=== PATIENT | female | born 1980 | race Caucasian/White ===

== ENCOUNTER 2016-11-16 16:48 | Inpatient (IN) | payer BC ==
[~2016-11-16] VITALS: Ht 172.7 cm; Wt 75.0 kg
[~2016-11-16 16:48] MED LIST: ADDERALL10 MG PO; ALPRAZOLAM0.25 M1 OR; ALPRAZOLAM0.25 MG PO; AMITRIPTYLIN25 MG OR; AMOXICILLIN500 MG PO; ASPIRIN EC325 MG PO; BACTRIM DS1 TAB OR; BACTRIM DS1 TAB PO; BUSPIRONE15 MG PO; CARAFATE PO; CELEBREX400 MG OR; CIPROFLOXACN500 MG PO; COMPAZINE10 MG OR; CYANOCOBALAM1000 MCG IJ; DECADRON4 MG PO; DEXILANT60 MG PO; DURAGESIC25 MCG/PAT TD; EFFEXOR75 MG OR; FENTANYL25 MCG/HR TD; FIORINA1 PO; FLEXERIL PO; FLEXERIL10 MG PO; IMODIUM OR; KLONOPIN0.5 MG PO; KLONOPIN1 MG OR; LAMICTAL100 M1 OR; LAMICTAL150 M1 OR; LAMICTAL200 MG OR; LAMICTAL25 M2 PO; LOMOTIL OR; LOMOTIL2.5 MG OR; LOMOTIL2.5 MG PO; LORTAB 10 OR; LORTAB 1010 MG PO; LORTAB 7.5 OR; LORTAB 7.57.5 MG PO; LYRICA75 MG OR; MACRODANTIN100 MG OR; MEDDOSEPAK OR; NAPROSYN500 MG PO; NEURONTIN300 MG PO; NO; NO HOME MEDS; ONDANSETRON4 MG PO; PAXIL30 MG PO; PERCOCET 5/325M1 TAB OR; PERCOCET1 TA4 PO; PHENERGAN12.5 MG/TA OR; PHENERGAN25 MG/ML PO; PHENERGAN25 MG/TAB PO; PREVACID30 M1 PO; PREVACID30 M2 PO; PRILOSEC40 MG PO; PROMETHAZINE25 MG OR; PROMETHAZINE25 MG PO; PROTONIX40 M2 PO; REGLAN10 MG OR; RESTORIL15 MG PO; TEMAZEPAM30 MG OR; TEMAZEPAM30 MG PO; TRAMADOL HCL50 MG OR; TRAMADOL HCL50 MG PO; TRAZODONE50 MG OR; TYLENOL500 MG OR; ULTRAM50 MG OR; ULTRAM50 MG PO; VOLTAREN1%GEL TOP; XANAX1 MG OR; ZOFRAN ODT8 MG PO; ZOFRAN ODT8 MG SL; ZOFRAN8 MG OR
[2016-11-16 17:57] LABS: HEMATOCRIT 41.9 % (37.0-47.0); HEMOGLOBIN 14.4 g/dl (12.0-16.0); IMMATURE GRANULOCYTES 0.3 % (0.0-1.0); MEAN CELL VOLUME 87.5 fL CALC (80.0-100.0); MEAN CORPUSCULAR HGB 30.1 pG CALC (26.0-32.0); MEAN CORPUSCULAR HGB CONC 34.4 g/L CALC (32.0-36.0); NEUT# 4.58 thou/uL (2.00-7.15); RED BLOOD COUNT 4.79 mill/uL (4.20-5.60); RED CELL DISTRI WIDTH 12.3 % (11.5-15.5)
[2016-11-16 18:18] LABS: ALBUMIN 5.3 g/dL (3.2-5.0); ALKALINE PHOSPHATASE 165 u/l (38-126); AMYLASE 171 u/l (30-110); ANION GAP 19 (6-22 (CALC)); BILIRUBIN, TOTAL 0.9 mg/dL (0.0-1.4); BUN 21 mg/dL (7-17); BUN/CREATININE RATIO 17 (12-20 (CALC)); CALCIUM 10.2 mg/dL (8.4-10.2); CARBON DIOXIDE 21 mmol/l (22-30); CHLORIDE 101 mmol/l (95-108); CREATININE 1.2 mg/dL (0.5-1.0); GFR 51 ML/MIN (>=60 (CALC)); GFR FOR AFR.AMER. > 60 ML/MIN (>=60 (CALC)); GLUCOSE 92 mg/dL (65-105); LIPASE 828 u/l (23-300); SGOT/AST 32 u/l (14-36); SGPT/ALT 50 u/l (9-52); SODIUM 138 mmol/l (137-146)
[2016-11-16 18:30] LABS: URINE BILIRUBIN - DIPSTICK NEGATIVE (NEGATIVE); URINE BLOOD DIPSTICK TRACE-INTACT (NEGATIVE); URINE CLARITY CLEAR; URINE COLOR YELLOW; URINE GLUCOSE - DIPSTICK NEGATIVE (NEGATIVE); URINE KETONE NEGATIVE (NEGATIVE); URINE NITRITE - DIPSTICK NEGATIVE (Negative); URINE PROTEIN - DIPSTICK NEGATIVE (NEG-TRACE); URINE UROBILINOGEN - DIPSTICK 0.2 E.U./dL (0.2)
[2016-11-16 18:32] LABS: URINE LEUK ESTERASE SMALL (NEGATIVE)
[2016-11-16 18:40] LABS: URINE SQUAMOUS EPITHELIAL CELL FEW EPI/hpf (0-FEW)
[2016-11-16] MEDS ORDERED: BACTRIM DS1 TAB PO (21:01)
[2016-11-16] MEDS ORDERED: PERCOCET 5/325M1 TAB PO (21:01)
[2016-11-16 22:49] VITALS: BP 133/86
[2016-11-17 05:34] VITALS: BP 129/82
[2016-11-17 05:52] LABS: ALKALINE PHOSPHATASE 124 u/l (38-126); AMYLASE 123 u/l (30-110); ANION GAP 15 (6-22 (CALC)); BILIRUBIN, TOTAL 1.1 mg/dL (0.0-1.4); BUN 18 mg/dL (7-17); BUN/CREATININE RATIO 16 (12-20 (CALC)); CALCIUM 8.7 mg/dL (8.4-10.2); CARBON DIOXIDE 19 mmol/l (22-30); CHLORIDE 105 mmol/l (95-108); CREATININE 1.1 mg/dL (0.5-1.0); GFR 57 ML/MIN (>=60 (CALC)); GFR FOR AFR.AMER. > 60 ML/MIN (>=60 (CALC)); GLUCOSE 78 mg/dL (65-105); LIPASE 425 u/l (23-300); POTASSIUM 3.8 mmol/l (3.5-5.1); SGOT/AST 28 u/l (14-36); SGPT/ALT 45 u/l (9-52); SODIUM 135 mmol/l (137-146); TOTAL PROTEIN 6.8 g/dL (6.3-8.2)
[2016-11-17 05:56] LABS: HEMATOCRIT 35.7 % (37.0-47.0); HEMOGLOBIN 12.4 g/dl (12.0-16.0); IMMATURE GRANULOCYTES 0.3 % (0.0-1.0); MEAN CELL VOLUME 87.9 fL CALC (80.0-100.0); MEAN CORPUSCULAR HGB 30.5 pG CALC (26.0-32.0); MEAN CORPUSCULAR HGB CONC 34.7 g/L CALC (32.0-36.0); NEUT# 4.05 thou/uL (2.00-7.15); RED BLOOD COUNT 4.06 mill/uL (4.20-5.60); RED CELL DISTRI WIDTH 12.4 % (11.5-15.5)
[2016-11-17 08:03] VITALS: BP 115/63
[2016-11-17 15:31] VITALS: BP 102/59
[2016-11-17 19:40] VITALS: BP 95/61
[2016-11-18 04:25] VITALS: BP 127/73; BP 143/86
[2016-11-18 05:30] LABS: HEMATOCRIT 32.7 % (37.0-47.0); IMMATURE GRANULOCYTES 0.4 % (0.0-1.0); MEAN CELL VOLUME 89.1 fL CALC (80.0-100.0); MEAN CORPUSCULAR HGB CONC 33.6 g/L CALC (32.0-36.0); NEUT# 1.24 thou/uL (2.00-7.15); RED BLOOD COUNT 3.67 mill/uL (4.20-5.60); RED CELL DISTRI WIDTH 12.5 % (11.5-15.5)
[2016-11-18 05:33] LABS: ALBUMIN 3.4 g/dL (3.2-5.0); ALKALINE PHOSPHATASE 107 u/l (38-126); AMYLASE 110 u/l (30-110); ANION GAP 9 (6-22 (CALC)); BILIRUBIN, TOTAL 0.8 mg/dL (0.0-1.4); BUN 9 mg/dL (7-17); BUN/CREATININE RATIO 8 (12-20 (CALC)); CALCIUM 8.6 mg/dL (8.4-10.2); CARBON DIOXIDE 24 mmol/l (22-30); CHLORIDE 110 mmol/l (95-108); CREATININE 1.1 mg/dL (0.5-1.0); GFR 57 ML/MIN (>=60 (CALC)); GFR FOR AFR.AMER. > 60 ML/MIN (>=60 (CALC)); GLUCOSE 89 mg/dL (65-105); LIPASE 472 u/l (23-300); POTASSIUM 3.7 mmol/l (3.5-5.1); SGOT/AST 31 u/l (14-36); SGPT/ALT 43 u/l (9-52); SODIUM 139 mmol/l (137-146); TOTAL PROTEIN 5.9 g/dL (6.3-8.2)
[2016-11-18 15:08] VITALS: BP 110/73
[2016-11-18 19:20] VITALS: BP 115/73
[2016-11-19 04:21] LABS: HEMATOCRIT 36.1 % (37.0-47.0); HEMOGLOBIN 12.2 g/dl (12.0-16.0); IMMATURE GRANULOCYTES 0.2 % (0.0-1.0); MEAN CELL VOLUME 88.9 fL CALC (80.0-100.0); MEAN CORPUSCULAR HGB CONC 33.8 g/L CALC (32.0-36.0); NEUT# 2.77 thou/uL (2.00-7.15); RED BLOOD COUNT 4.06 mill/uL (4.20-5.60); RED CELL DISTRI WIDTH 12.4 % (11.5-15.5)
[2016-11-19 04:33] LABS: ALBUMIN 3.9 g/dL (3.2-5.0); ALKALINE PHOSPHATASE 118 u/l (38-126); AMYLASE 194 u/l (30-110); ANION GAP 12 (6-22 (CALC)); BILIRUBIN, TOTAL 0.5 mg/dL (0.0-1.4); BUN 6 mg/dL (7-17); BUN/CREATININE RATIO 5 (12-20 (CALC)); CALCIUM 8.8 mg/dL (8.4-10.2); CARBON DIOXIDE 25 mmol/l (22-30); CHLORIDE 107 mmol/l (95-108); CREATININE 1.1 mg/dL (0.5-1.0); GFR 57 ML/MIN (>=60 (CALC)); GFR FOR AFR.AMER. > 60 ML/MIN (>=60 (CALC)); GLUCOSE 89 mg/dL (65-105); LIPASE 1204 u/l (23-300); POTASSIUM 3.8 mmol/l (3.5-5.1); SGOT/AST 28 u/l (14-36); SGPT/ALT 45 u/l (9-52); SODIUM 140 mmol/l (137-146); TOTAL PROTEIN 6.7 g/dL (6.3-8.2)
[2016-11-19 04:39] VITALS: BP 109/66
[2016-11-19 07:50] VITALS: BP 96/63
[2016-11-19 15:17] VITALS: BP 98/63
[2016-11-19 19:42] VITALS: BP 101/69
[2016-11-20 04:20] VITALS: BP 104/69
[2016-11-20 04:56] LABS: HEMATOCRIT 32.1 % (37.0-47.0); HEMOGLOBIN 11.1 g/dl (12.0-16.0); IMMATURE GRANULOCYTES 0.2 % (0.0-1.0); MEAN CELL VOLUME 88.9 fL CALC (80.0-100.0); MEAN CORPUSCULAR HGB 30.7 pG CALC (26.0-32.0); MEAN CORPUSCULAR HGB CONC 34.6 g/L CALC (32.0-36.0); NEUT# 2.56 thou/uL (2.00-7.15); RED BLOOD COUNT 3.61 mill/uL (4.20-5.60); RED CELL DISTRI WIDTH 12.1 % (11.5-15.5)
[2016-11-20 05:10] LABS: ALBUMIN 3.3 g/dL (3.2-5.0); ALKALINE PHOSPHATASE 100 u/l (38-126); AMYLASE 156 u/l (30-110); ANION GAP 11 (6-22 (CALC)); BILIRUBIN, TOTAL 0.5 mg/dL (0.0-1.4); BUN 8 mg/dL (7-17); BUN/CREATININE RATIO 7 (12-20 (CALC)); CALCIUM 8.6 mg/dL (8.4-10.2); CARBON DIOXIDE 22 mmol/l (22-30); CHLORIDE 110 mmol/l (95-108); CREATININE 1.1 mg/dL (0.5-1.0); GFR 57 ML/MIN (>=60 (CALC)); GFR FOR AFR.AMER. > 60 ML/MIN (>=60 (CALC)); GLUCOSE 140 mg/dL (65-105); LIPASE 944 u/l (23-300); POTASSIUM 3.6 mmol/l (3.5-5.1); SGOT/AST 22 u/l (14-36); SGPT/ALT 37 u/l (9-52); SODIUM 139 mmol/l (137-146); TOTAL PROTEIN 5.8 g/dL (6.3-8.2)
[2016-11-20 08:22] VITALS: BP 113/73
[2016-11-20 15:54] VITALS: BP 94/53
[2016-11-20 19:20] VITALS: BP 96/64
[2016-11-21 04:56] VITALS: BP 117/77
[2016-11-21 05:18] LABS: HEMATOCRIT 34.6 % (37.0-47.0); HEMOGLOBIN 11.9 g/dl (12.0-16.0); IMMATURE GRANULOCYTES 0.2 % (0.0-1.0); MEAN CELL VOLUME 88.9 fL CALC (80.0-100.0); MEAN CORPUSCULAR HGB 30.6 pG CALC (26.0-32.0); MEAN CORPUSCULAR HGB CONC 34.4 g/L CALC (32.0-36.0); NEUT# 1.95 thou/uL (2.00-7.15); RED BLOOD COUNT 3.89 mill/uL (4.20-5.60); RED CELL DISTRI WIDTH 12.2 % (11.5-15.5)
[2016-11-21 05:32] LABS: ALBUMIN 3.7 g/dL (3.2-5.0); ALKALINE PHOSPHATASE 110 u/l (38-126); AMYLASE 164 u/l (30-110); ANION GAP 13 (6-22 (CALC)); BILIRUBIN, TOTAL 0.7 mg/dL (0.0-1.4); BUN 9 mg/dL (7-17); BUN/CREATININE RATIO 8 (12-20 (CALC)); CARBON DIOXIDE 26 mmol/l (22-30); CHLORIDE 107 mmol/l (95-108); CREATININE 1.2 mg/dL (0.5-1.0); GFR 51 ML/MIN (>=60 (CALC)); GFR FOR AFR.AMER. > 60 ML/MIN (>=60 (CALC)); GLUCOSE 81 mg/dL (65-105); LIPASE 751 u/l (23-300); POTASSIUM 3.6 mmol/l (3.5-5.1); SGOT/AST 19 u/l (14-36); SGPT/ALT 34 u/l (9-52); SODIUM 142 mmol/l (137-146); TOTAL PROTEIN 6.4 g/dL (6.3-8.2)
== END 2016-11-21 12:20 | DRG 445 ==
LOC: ED 16:48 → ED-I 21:41 → ED 22:03 → MS2 22:04
PROVIDERS: Emergency Medicine; ADMIT Internal Medicine Geriatric Medicine; ATTEND Internal Medicine Geriatric Medicine
DX: K80.50 Calculus of bile duct without cholangitis or cholecystitis without obstruction (principal); K86.1 Other chronic pancreatitis; F32.9 Major depressive disorder, single episode, unspecified; R19.09 Other intra-abdominal and pelvic swelling, mass and lump; E86.0 Dehydration; Z93.2 Ileostomy status; Z90.49 Acquired absence of other specified parts of digestive tract; Z85.038 Personal history of other malignant neoplasm of large intestine
CPT/HCPCS: J1650; S0164

== ENCOUNTER 2016-12-12 15:20 | Inpatient (IN) | payer BC ==
[~2016-12-12] VITALS: Ht 172.7 cm; Wt 78.4 kg
[~2016-12-12 15:20] MED LIST changes: +PERCOCET 5/325M1 TAB PO
[2016-12-12 16:39] LABS: HEMOGLOBIN 12.1 g/dl (12.0-16.0); IMMATURE GRANULOCYTES 0.6 % (0.0-1.0); MEAN CELL VOLUME 88.5 fL CALC (80.0-100.0); MEAN CORPUSCULAR HGB 29.7 pG CALC (26.0-32.0); MEAN CORPUSCULAR HGB CONC 33.6 g/L CALC (32.0-36.0); NEUT# 4.93 thou/uL (2.00-7.15); RED BLOOD COUNT 4.07 mill/uL (4.20-5.60); RED CELL DISTRI WIDTH 11.7 % (11.5-15.5)
[2016-12-12 16:50] LABS: ALBUMIN 4.7 g/dL (3.2-5.0); ALKALINE PHOSPHATASE 146 u/l (38-126); AMYLASE 179 u/l (30-110); ANION GAP 18 (6-22 (CALC)); BILIRUBIN, TOTAL 0.5 mg/dL (0.0-1.4); BUN 17 mg/dL (7-17); BUN/CREATININE RATIO 16 (12-20 (CALC)); CALCIUM 9.6 mg/dL (8.4-10.2); CARBON DIOXIDE 25 mmol/l (22-30); CHLORIDE 97 mmol/l (95-108); CREATININE 1.1 mg/dL (0.5-1.0); GFR 57 ML/MIN (>=60 (CALC)); GFR FOR AFR.AMER. > 60 ML/MIN (>=60 (CALC)); GLUCOSE 99 mg/dL (65-105); LIPASE 797 u/l (23-300); POTASSIUM 3.9 mmol/l (3.5-5.1); SGOT/AST 23 u/l (14-36); SGPT/ALT 25 u/l (9-52); SODIUM 137 mmol/l (137-146); TOTAL PROTEIN 8.3 g/dL (6.3-8.2)
[2016-12-12] MEDS ORDERED: BENTYL20 MG PO (18:53)
[2016-12-12] MEDS ORDERED: TRAMADOL HCL50 MG PO (18:55)
[2016-12-12 19:00] LABS: URINE BILIRUBIN - DIPSTICK NEGATIVE (NEGATIVE); URINE BLOOD DIPSTICK NEGATIVE (NEGATIVE); URINE COLOR YELLOW; URINE GLUCOSE - DIPSTICK NEGATIVE (NEGATIVE); URINE KETONE NEGATIVE (NEGATIVE); URINE NITRITE - DIPSTICK NEGATIVE (Negative); URINE PROTEIN - DIPSTICK NEGATIVE (NEG-TRACE); URINE SPECIFIC GRAVITY 1.015; URINE UROBILINOGEN - DIPSTICK 0.2 E.U./dL (0.2)
[2016-12-12 19:01] LABS: URINE CLARITY HAZY; URINE LEUK ESTERASE MODERATE (NEGATIVE)
[2016-12-12 19:07] LABS: URINE SQUAMOUS EPITHELIAL CELL FEW EPI/hpf (0-FEW)
[2016-12-12 20:50] VITALS: BP 123/81
[2016-12-12 23:25] VITALS: BP 121/67
[2016-12-13 03:15] VITALS: BP 97/57
[2016-12-13 06:32] LABS: HEMATOCRIT 32.1 % (37.0-47.0); HEMOGLOBIN 10.8 g/dl (12.0-16.0); IMMATURE GRANULOCYTES 0.2 % (0.0-1.0); MEAN CELL VOLUME 90.2 fL CALC (80.0-100.0); MEAN CORPUSCULAR HGB 30.3 pG CALC (26.0-32.0); MEAN CORPUSCULAR HGB CONC 33.6 g/L CALC (32.0-36.0); NEUT# 2.03 thou/uL (2.00-7.15); RED BLOOD COUNT 3.56 mill/uL (4.20-5.60); RED CELL DISTRI WIDTH 11.7 % (11.5-15.5)
[2016-12-13 06:39] LABS: ALBUMIN 3.7 g/dL (3.2-5.0); ALKALINE PHOSPHATASE 115 u/l (38-126); BILIRUBIN, TOTAL 0.4 mg/dL (0.0-1.4); BUN 11 mg/dL (7-17); BUN/CREATININE RATIO 12 (12-20 (CALC)); CARBON DIOXIDE 21 mmol/l (22-30); CREATININE 0.9 mg/dL (0.5-1.0); GFR > 60 ML/MIN (>=60 (CALC)); GFR FOR AFR.AMER. > 60 ML/MIN (>=60 (CALC)); GLUCOSE 87 mg/dL (65-105); POTASSIUM 3.9 mmol/l (3.5-5.1); SGOT/AST 18 u/l (14-36); SGPT/ALT 22 u/l (9-52); SODIUM 141 mmol/l (137-146); TOTAL PROTEIN 6.5 g/dL (6.3-8.2)
[2016-12-13 06:42] LABS: AMYLASE 127 u/l (30-110); LIPASE 622 u/l (23-300)
[2016-12-13 06:50] LABS: ANION GAP 17 (6-22 (CALC)); CHLORIDE 107 mmol/l (95-108)
[2016-12-13 08:00] VITALS: BP 90/54
[2016-12-13 10:16] LABS: CHOLESTEROL HDL RATIO 4.2 (<4.4 (CALC))
[2016-12-13 14:41] VITALS: BP 118/77
[2016-12-13 19:32] VITALS: BP 113/77
[2016-12-14 04:33] VITALS: BP 103/83
[2016-12-14 06:13] LABS: HEMATOCRIT 30.6 % (37.0-47.0); HEMOGLOBIN 10.2 g/dl (12.0-16.0); IMMATURE GRANULOCYTES 0.3 % (0.0-1.0); MEAN CELL VOLUME 89.7 fL CALC (80.0-100.0); MEAN CORPUSCULAR HGB 29.9 pG CALC (26.0-32.0); MEAN CORPUSCULAR HGB CONC 33.3 g/L CALC (32.0-36.0); NEUT# 1.77 thou/uL (2.00-7.15); RED BLOOD COUNT 3.41 mill/uL (4.20-5.60); RED CELL DISTRI WIDTH 11.8 % (11.5-15.5)
[2016-12-14 06:38] LABS: ALBUMIN 3.4 g/dL (3.2-5.0); ALKALINE PHOSPHATASE 111 u/l (38-126); AMYLASE 122 u/l (30-110); ANION GAP 12 (6-22 (CALC)); BILIRUBIN, TOTAL 0.3 mg/dL (0.0-1.4); BUN 11 mg/dL (7-17); BUN/CREATININE RATIO 11 (12-20 (CALC)); CALCIUM 8.6 mg/dL (8.4-10.2); CARBON DIOXIDE 24 mmol/l (22-30); CHLORIDE 109 mmol/l (95-108); GFR > 60 ML/MIN (>=60 (CALC)); GFR FOR AFR.AMER. > 60 ML/MIN (>=60 (CALC)); GLUCOSE 90 mg/dL (65-105); POTASSIUM 3.9 mmol/l (3.5-5.1); SGOT/AST 17 u/l (14-36); SGPT/ALT 23 u/l (9-52); SODIUM 141 mmol/l (137-146)
[2016-12-14 07:40] VITALS: BP 114/78
[2016-12-14 16:08] VITALS: BP 116/67
[2016-12-14 20:05] VITALS: BP 118/78
[2016-12-14 23:25] VITALS: BP 115/73
[2016-12-15 04:40] VITALS: BP 92/61
[2016-12-15 06:18] LABS: HEMATOCRIT 29.9 % (37.0-47.0); HEMOGLOBIN 10.1 g/dl (12.0-16.0); IMMATURE GRANULOCYTES 0.3 % (0.0-1.0); MEAN CELL VOLUME 90.3 fL CALC (80.0-100.0); MEAN CORPUSCULAR HGB 30.5 pG CALC (26.0-32.0); MEAN CORPUSCULAR HGB CONC 33.8 g/L CALC (32.0-36.0); NEUT# 1.74 thou/uL (2.00-7.15); RED BLOOD COUNT 3.31 mill/uL (4.20-5.60); RED CELL DISTRI WIDTH 11.7 % (11.5-15.5)
[2016-12-15 06:29] LABS: ALBUMIN 3.4 g/dL (3.2-5.0); ALKALINE PHOSPHATASE 100 u/l (38-126); AMYLASE 134 u/l (30-110); ANION GAP 13 (6-22 (CALC)); BILIRUBIN, TOTAL 0.2 mg/dL (0.0-1.4); BUN 15 mg/dL (7-17); BUN/CREATININE RATIO 15 (12-20 (CALC)); CALCIUM 8.8 mg/dL (8.4-10.2); CARBON DIOXIDE 24 mmol/l (22-30); CHLORIDE 108 mmol/l (95-108); GFR > 60 ML/MIN (>=60 (CALC)); GFR FOR AFR.AMER. > 60 ML/MIN (>=60 (CALC)); GLUCOSE 86 mg/dL (65-105); POTASSIUM 4.2 mmol/l (3.5-5.1); SGOT/AST 16 u/l (14-36); SGPT/ALT 24 u/l (9-52); SODIUM 141 mmol/l (137-146); TOTAL PROTEIN 5.9 g/dL (6.3-8.2)
[2016-12-15 07:30] VITALS: BP 97/63
[2016-12-15 15:15] VITALS: BP 102/58
[2016-12-15 19:35] VITALS: BP 118/74
[2016-12-16 04:49] VITALS: BP 114/74
[2016-12-16 05:34] LABS: HEMATOCRIT 31.5 % (37.0-47.0); HEMOGLOBIN 10.6 g/dl (12.0-16.0); IMMATURE GRANULOCYTES 0.2 % (0.0-1.0); MEAN CELL VOLUME 88.5 fL CALC (80.0-100.0); MEAN CORPUSCULAR HGB 29.8 pG CALC (26.0-32.0); MEAN CORPUSCULAR HGB CONC 33.7 g/L CALC (32.0-36.0); NEUT# 2.32 thou/uL (2.00-7.15); RED BLOOD COUNT 3.56 mill/uL (4.20-5.60); RED CELL DISTRI WIDTH 11.6 % (11.5-15.5)
[2016-12-16 05:49] LABS: ALBUMIN 3.7 g/dL (3.2-5.0); ALKALINE PHOSPHATASE 102 u/l (38-126); AMYLASE 145 u/l (30-110); ANION GAP 13 (6-22 (CALC)); BILIRUBIN, TOTAL 0.5 mg/dL (0.0-1.4); BUN 23 mg/dL (7-17); BUN/CREATININE RATIO 23 (12-20 (CALC)); CALCIUM 9.4 mg/dL (8.4-10.2); CARBON DIOXIDE 25 mmol/l (22-30); CHLORIDE 105 mmol/l (95-108); GFR > 60 ML/MIN (>=60 (CALC)); GFR FOR AFR.AMER. > 60 ML/MIN (>=60 (CALC)); GLUCOSE 85 mg/dL (65-105); LIPASE 600 u/l (23-300); POTASSIUM 4.1 mmol/l (3.5-5.1); SGOT/AST 20 u/l (14-36); SGPT/ALT 25 u/l (9-52); SODIUM 139 mmol/l (137-146); TOTAL PROTEIN 6.5 g/dL (6.3-8.2)
[2016-12-16 07:45] VITALS: BP 105/73
== END 2016-12-16 11:30 | disposition home or self-care (01) | DRG 440 ==
LOC: ENPENDDIS → ED 15:20 → ED-I 18:30 → ED 18:54 → MS2 18:55
PROVIDERS: Emergency Medicine; ADMIT Internal Medicine Geriatric Medicine; ATTEND Internal Medicine Geriatric Medicine
DX: K85.90 Acute pancreatitis without necrosis or infection, unspecified (principal); F32.9 Major depressive disorder, single episode, unspecified; R19.04 Left lower quadrant abdominal swelling, mass and lump; Z90.49 Acquired absence of other specified parts of digestive tract; Z93.2 Ileostomy status; Z87.19 Personal history of other diseases of the digestive system
CPT/HCPCS: S0164

== ENCOUNTER 2017-01-27 06:50 | Emergency (ER) | payer BC ==
[~2017-01-27] VITALS: Ht 172.7 cm; Wt 75.0 kg
[~2017-01-27 06:50] MED LIST changes: +BENTYL20 MG PO
[2017-01-27 08:44] LABS: HEMATOCRIT 30.9 % (37.0-47.0); HEMOGLOBIN 10.7 g/dl (12.0-16.0); IMMATURE GRANULOCYTES 0.7 % (0.0-1.0); MEAN CELL VOLUME 82.6 fL CALC (80.0-100.0); MEAN CORPUSCULAR HGB 28.6 pG CALC (26.0-32.0); MEAN CORPUSCULAR HGB CONC 34.6 g/L CALC (32.0-36.0); NEUT# 4.94 thou/uL (2.00-7.15); RED BLOOD COUNT 3.74 mill/uL (4.20-5.60); RED CELL DISTRI WIDTH 12.7 % (11.5-15.5)
[2017-01-27 09:12] LABS: PROTHROMBIN TIME 10.9 SECONDS (9.0-12.5)
[2017-01-27 09:16] LABS: ALBUMIN 4.6 g/dL (3.2-5.0); ALKALINE PHOSPHATASE 153 u/l (38-126); ANION GAP 17 (6-22 (CALC)); BILIRUBIN, TOTAL 0.7 mg/dL (0.0-1.4); BUN 12 mg/dL (7-17); BUN/CREATININE RATIO 13 (12-20 (CALC)); CALCIUM 9.4 mg/dL (8.4-10.2); CARBON DIOXIDE 25 mmol/l (22-30); CHLORIDE 89 mmol/l (95-108); CREATININE 0.9 mg/dL (0.5-1.0); GFR > 60 ML/MIN (>=60 (CALC)); GFR FOR AFR.AMER. > 60 ML/MIN (>=60 (CALC)); GLUCOSE 109 mg/dL (65-105); LIPASE 358 u/l (23-300); POTASSIUM 3.6 mmol/l (3.5-5.1); SGOT/AST 53 u/l (14-36); SGPT/ALT 49 u/l (9-52); SODIUM 127 mmol/l (137-146); TOTAL PROTEIN 8.4 g/dL (6.3-8.2)
[2017-01-27 16:30] VITALS: BP 112/71
== END 2017-01-27 16:30 | DRG 948 ==
LOC: ED 06:50
PROVIDERS: Emergency Medicine
DX: G89.18 Other acute postprocedural pain (principal); E87.1 Hypo-osmolality and hyponatremia; K68.11 Postprocedural retroperitoneal abscess; K86.1 Other chronic pancreatitis; R11.2 Nausea with vomiting, unspecified
CPT/HCPCS: Q9967

== ENCOUNTER 2017-02-02 08:36 | Emergency (ER) | payer BC ==
[~2017-02-02] VITALS: Ht 172.7 cm; Wt 72.7 kg
[2017-02-02] MEDS ORDERED: SERTRALINE HCL50 MG PO (09:32)
[2017-02-02] MEDS ORDERED: OXYCODONE/ACETA1 TA8 PO (09:35)
[2017-02-02 09:44] LABS: HEMATOCRIT 35.5 % (37.0-47.0); HEMOGLOBIN 12.6 g/dl (12.0-16.0); IMMATURE GRANULOCYTES 0.8 % (0.0-1.0); MEAN CELL VOLUME 81.1 fL CALC (80.0-100.0); MEAN CORPUSCULAR HGB 28.8 pG CALC (26.0-32.0); MEAN CORPUSCULAR HGB CONC 35.5 g/L CALC (32.0-36.0); NEUT# 15.75 thou/uL (2.00-7.15); RED BLOOD COUNT 4.38 mill/uL (4.20-5.60); RED CELL DISTRI WIDTH 13.5 % (11.5-15.5)
[2017-02-02 10:18] LABS: ALBUMIN 5.2 g/dL (3.2-5.0); BILIRUBIN, TOTAL 0.8 mg/dL (0.0-1.4); CREATININE 1.7 mg/dL (0.5-1.0); POTASSIUM 3.9 mmol/l (3.5-5.1); TOTAL PROTEIN 9.3 g/dL (6.3-8.2)
[2017-02-02 11:25] LABS: URINE BILIRUBIN - DIPSTICK NEGATIVE (NEGATIVE); URINE BLOOD DIPSTICK NEGATIVE (NEGATIVE); URINE CLARITY CLEAR; URINE COLOR YELLOW; URINE GLUCOSE - DIPSTICK NEGATIVE (NEGATIVE); URINE KETONE NEGATIVE (NEGATIVE); URINE LEUK ESTERASE NEGATIVE (NEGATIVE); URINE NITRITE - DIPSTICK NEGATIVE (Negative); URINE PH 5.5 (4.5-8.0); URINE PROTEIN - DIPSTICK TRACE mg/dL (NEG-TRACE); URINE SPECIFIC GRAVITY 1.025; URINE UROBILINOGEN - DIPSTICK 0.2 E.U./dL (0.2)
[2017-02-02] MEDS ORDERED: PHENERGAN25 MG/TAB PO (12:10)
[2017-02-02 14:42] VITALS: BP 114/82
== END 2017-02-02 14:41 | DRG 395 ==
LOC: ED 08:36 → ED-I 11:29 → ED 14:41
PROVIDERS: Emergency Medicine
DX: K91.3 Postprocedural intestinal obstruction (principal); E86.0 Dehydration; Y83.2 Surgical operation with anastomosis, bypass or graft as the cause of abnormal reaction of the patient, or of later complication, without mention of misadventure at the time of the procedure; R10.33 Periumbilical pain; R11.0 Nausea

== ENCOUNTER 2017-02-17 19:37 | Inpatient (IN) | payer BC ==
[~2017-02-17] VITALS: Ht 172.7 cm; Wt 74.0 kg
[~2017-02-17 19:37] MED LIST changes: +OXYCODONE/ACETA1 TA8 PO; +SERTRALINE HCL50 MG PO
--- NOTE | 2017-02-17 19:47 | NUR ---
PT TO ROOM FOR TREATMENT IN STABLE CONDITION
[2017-02-17] MEDS ORDERED: ULTRAM50 MG PO (19:56)
--- NOTE | 2017-02-17 19:58 | NUR ---
IN ROOM TO INTRODUCE SELF TO PT. REPORTS ONGOING UPPER ABD PAIN FOR 3 DAYS WITH NAUSEA AND DIARRHEA. PT HAS ILEOSTOMY IN PLACE WITH SOFT BROWN STOOL, PT STATED HAS CHANGED BAG EVERY 1-2 HRS SINCE YESTERDAY. WAS D/C FROM [facility] 02/06 AND HAD NGT PLACED FOR SBO. PORT TO LEFT UPPER CHEST. PLACED ON MONITOR. CALL LIGHT WITHIN REACH.
--- NOTE | 2017-02-17 20:35 | NUR ---
PT'S PORT ACCESSED BY JONAS COPE. PORT FLUSHES WITH NO DIFFICULTY. + BLOOD RETURN. LABDS DRAWN. PT MEDICATED FOR PAIN AND NAUSEA. IVF INFUSING TO PORT.VERBALIZES NO NEEDS AT THIS TIME.
[2017-02-17 20:41] LABS: HEMATOCRIT 28.4 % (37.0-47.0); HEMOGLOBIN 9.8 g/dl (12.0-16.0); IMMATURE GRANULOCYTES 0.2 % (0.0-1.0); MEAN CELL VOLUME 83.5 fL CALC (80.0-100.0); MEAN CORPUSCULAR HGB 28.8 pG CALC (26.0-32.0); MEAN CORPUSCULAR HGB CONC 34.5 g/L CALC (32.0-36.0); NEUT# 3.56 thou/uL (2.00-7.15); RED BLOOD COUNT 3.4 mill/uL (4.20-5.60); RED CELL DISTRI WIDTH 13.8 % (11.5-15.5)
[2017-02-17 20:47] LABS: ALBUMIN 4.3 g/dL (3.2-5.0); ALKALINE PHOSPHATASE 137 u/l (38-126); AMYLASE 120 u/l (30-110); ANION GAP 16 (6-22 (CALC)); BILIRUBIN, TOTAL 0.5 mg/dL (0.0-1.4); BUN 25 mg/dL (7-17); BUN/CREATININE RATIO 21 (12-20 (CALC)); CALCIUM 8.6 mg/dL (8.4-10.2); CARBON DIOXIDE 24 mmol/l (22-30); CHLORIDE 96 mmol/l (95-108); CREATININE 1.2 mg/dL (0.5-1.0); GFR 51 ML/MIN (>=60 (CALC)); GFR FOR AFR.AMER. > 60 ML/MIN (>=60 (CALC)); GLUCOSE 93 mg/dL (65-105); LIPASE 527 u/l (23-300); POTASSIUM 3.7 mmol/l (3.5-5.1); SGOT/AST 38 u/l (14-36); SGPT/ALT 51 u/l (9-52); SODIUM 132 mmol/l (137-146); TOTAL PROTEIN 7.3 g/dL (6.3-8.2)
--- NOTE | 2017-02-17 21:17 | NUR ---
PT RETURNED FROM CT. RESTING ON STRETCHER. CALL LIGHT WITHIN REACH. IVF TO PORT.
--- NOTE | 2017-02-17 22:20 | NUR ---
REPORT GIVEN TO ANATOLIY PROCTOR ON MS.
[2017-02-17 22:30] VITALS: BP 110/71
--- NOTE | 2017-02-17 22:30 | NUR ---
FROM ER TO MED/SURG ROOM 279, ARRIVED VIA W/C ACCOMPANIED BY ANUEL FOWLER LPN, PT AMBULATED TO STANDING SCALE AND TO BED, STEADY GAIT NOTED, ALERT AND ORIENTED X3, HAS ILEOSTOMY BAG IN PLACE, LIQUID GREEN STOOL NOTED ON ILEOSTOMY BAG, STOMA IS PINK/RED COLOR, DENIES PAIN AND N/V AT THIS TIME, SKIN IS DRY AND COOL, ACYANOTIC, LUNGS ARE CLEAR ALLTHROUGHOUT, STRONG PEDAL PULSES ABDOMEN IS SOFT, TENDER TO TOUCH, EXPLAINED MED SCHEDULE AND PLAN OF CARE, PT VOICES UNDERSTANDING, PT HAS OWN SUPPLY FOR ILEOSTOMY CARE, ENCOURAGED TO CALL IF ASSISTANCE NEEDED, PT HAS RIGHT UPPER CHEST PORT, ACCESSED TODAY IN ER, NO FLUIDS INFUSING, FLUSHES WELL WITH GOOD BLOOD RETURN, NONSKID SOCKS AND TEDHOSE IN PLACE, SAFETY MEASURES REINFORCED, WILL CONTINUE TO MONITOR, CALL SAMUEL AT REACH.
--- NOTE | 2017-02-17 22:35 | NUR ---
Admission Note Report Given to: ANATOLIY PROCTOR Transported by: X Wheelchair Stretcher Transported with: X Nurse Transporter X Patent IV O2 [employer] PT TRANSPORTED TO MS 279 VIA WC. BELONGINGS SENT WITH PT.
--- NOTE | 2017-02-17 23:33 | NUR ---
CALLED DR. TOWNSEND, NEW ORDERS RECEIVED, WILL FAX THEM TO PHARMACY. WILL MEDICATED PER ORDERS NEEDED.
--- NOTE | 2017-02-18 01:51 | NUR ---
PT C/O FEELING NAUSEAS, MEDICATED WITH ZOFRAN PER DRCuco ORDERS, C/O ABDOMINAL PAIN, RATES IT AT 8/10 WILL MEDICATED PER ORDERS, WILL CONTINUE TO MONITOR.
[2017-02-18 04:42] VITALS: BP 92/56
--- NOTE | 2017-02-18 05:02 | NUR ---
DRAWN MORNING LABS, FLUSHED RIGHT CHEST PORT WITH HEPARIN FLUSH PER PROTOCOL, PT APPEARS CALM, NO DISTRESS NOTED, RESP ARE EVEN AND UNLABORED, STATES PAIN IN ABD RUQ IS AT 4/10, SHARP, EXPLAINED MED SCHEDULE, VOICES UNDERSTANDING, DENIES N/V, NO EMESIS NOTED, VOIDED 500CC OF CLEAR YELLOW URINE, PT SELF EMPTIED ILEOSTOMY BAG X1, STOOL IN BAG APPEARS LOOSE, NOT LIQUID MORE THICKENED CONSISTENCY, DARK GREEN/YELLOWISH, STOMA IS PINK/RED, PT REMOVED ZENIA HOSE, STATES "THEY ARE TOO TIGHT." REFUSES TO WEAR HOSPITAL SOCKS, WEARING OWN SOCKS, PT HAS OWN ILEOSTOMY SUPPLIES FROM HOME, SELF EMPTY BAG, ENCOURAGED TO CALL IF NEEDED ASSISTANCE. WILL CONTINUE TO MONITOR. CALL SAMUEL AT REACH.
[2017-02-18 05:20] LABS: AMYLASE 87 u/l (30-110); ANION GAP 15 (6-22 (CALC)); BUN 18 mg/dL (7-17); BUN/CREATININE RATIO 18 (12-20 (CALC)); CALCIUM 8.1 mg/dL (8.4-10.2); CARBON DIOXIDE 22 mmol/l (22-30); CHLORIDE 104 mmol/l (95-108); GFR > 60 ML/MIN (>=60 (CALC)); GFR FOR AFR.AMER. > 60 ML/MIN (>=60 (CALC)); GLUCOSE 83 mg/dL (65-105); LIPASE 340 u/l (23-300); POTASSIUM 3.8 mmol/l (3.5-5.1); SODIUM 137 mmol/l (137-146)
[2017-02-18 05:54] LABS: HEMATOCRIT 27.3 % (37.0-47.0); HEMOGLOBIN 9.1 g/dl (12.0-16.0); IMMATURE GRANULOCYTES 0.2 % (0.0-1.0); MEAN CELL VOLUME 85.6 fL CALC (80.0-100.0); MEAN CORPUSCULAR HGB 28.5 pG CALC (26.0-32.0); MEAN CORPUSCULAR HGB CONC 33.3 g/L CALC (32.0-36.0); NEUT# 2.01 thou/uL (2.00-7.15); RED BLOOD COUNT 3.19 mill/uL (4.20-5.60); RED CELL DISTRI WIDTH 14.2 % (11.5-15.5)
--- NOTE | 2017-02-18 06:39 | NUR ---
PT C/O SHARP PAIN IN ABD RUQ, RATES IT A 8/10, AND NAUSEA, MEDICATED WITH DILAUDID AND ZOFRAN PER DR. ORDERS, NO DISTRESS NOTED, RESP ARE EVEN AND UNLABORED, WILL CONTINUE TO REASSESS, CALL SAMUEL AT REACH.
--- NOTE | 2017-02-18 06:45 | NUR ---
REPORT RECEIVED FROM ANATOLIY PROCTOR. PT RESTING COMFORTABLY, WITH MILD PAIN LOCATED TO THE RLQ. PT DENIES NEEDS OR CONCERNS AT THIS TIME, INSTRUCTED PT TO CALL FOR ASSISTANCE. WILL CONTINUE TO MONITOR SAFETY.
[2017-02-18 08:31] VITALS: BP 92/51
--- NOTE | 2017-02-18 10:59 | NUR ---
PT MEDICATED WITH DILAUDID AND ZOFRAN FOR 8/10 PAIN TO THE RLQ. PT DENIES ANY FURTHER NEEDS OR CONCERNS. INSTRUCTED PT TO CALL FOR ASSISTANCE, PT VERBALIZES UNDERSTANDING.
--- NOTE | 2017-02-18 15:28 | NUR ---
PT MEDICATED WITH AGAIN WITH DILAUDID AND ZOFRAN. PT REQUESTING FULL LIQUIDS FOR DINNER. DIET ADVANCED INSTRUCTED BY MD. INSTRUCTED PT TO CALL FOR ASSISTANCE. STATES UNDERSTANDING
[2017-02-18 16:45] VITALS: BP 106/69
[2017-02-18 16:50] VITALS: BP 106/69
[2017-02-18 18:42] VITALS: BP 119/67
--- NOTE | 2017-02-18 19:56 | NUR ---
PATIENT RESTING IN BED AT THIS TIME-AWAKE ALERT AND ORIENTEDX3. PATIENT WITH IVF NS PATENT AND INFUSING AT 125CC/HR VIA RIGHT UPPER CHEST PORT-A-CATH. SITE APPEARS HEALTHY AT THIS TIME. PATIENT WITH ILEOSTOMY APPLIANCE INTACT AND DRAINING LIQUID BROWN FLUID. PATIENT WITH HEALTHY RECENT ABD INCISON LINE APPROXIMATED WITH INCISION LINE INTACT. PATIENT C/O SEVER ABB PAIN-8/10 ON PAIN SCALE. MEDICATED WITH DILAUDID 1MG IVP ORDERED FOR PAIN. MEDICATED WITH ZOFRAN 4MG IVP ORDERED FOR NAUSEA. PATIENT MEDICATED WITH XANAX PER PATIENT REQUEST. CALL LIGHT IN REACH. WILL CONT TO MONITOR.
--- NOTE | 2017-02-18 21:59 | NUR ---
PATIENT RESTING IN BED AT THIS TIME WITH NO COMPLAINTS. CALL LIGHT IN REACH. WILL CONT TO MONITOR.
--- NOTE | 2017-02-19 01:00 | NUR ---
PATIENT RESTING IN BED AT THIS TIME-C/O ABD PAIN 8/10 ON PAIN SCALE WELL NAUSEA. PATIENT MEDICATED WITH DILAUDID 1MG IVP AND ZOFRAN 4MG IVP ORDERED. PATIENT ASKING FOR SODA AND PROVIDED. CALL LIGHT IN REACH. WILL CONT TO MONITOR.
[2017-02-19 04:57] VITALS: BP 96/60
--- NOTE | 2017-02-19 05:01 | NUR ---
LAB WORK DRAWN FROM RIGHT UPPER CHEST PORT-SLUGGISH BLOOD RETURN. FLUSH PER PROTOCOL AFTER BLOOD DRAW WITH HEP MARIA EUGENIA. PATIENT C/O 12/19 PAIN AND NAUSEA-MEDICATED WITH DIDLAUDID 1MG IVP ORDERED FOR PAIN AND WITH ZOFRAN FOR NAUSEA. INSTRUCTED AGIN THAT WE NEED URINE SPEC-STATES THAT SHE WILL GET IT NOW. CALL LIGHT IN REACH. WILL CONT TO MONITOR.
[2017-02-19 05:21] LABS: HEMATOCRIT 25.6 % (37.0-47.0); HEMOGLOBIN 8.6 g/dl (12.0-16.0); IMMATURE GRANULOCYTES 0.3 % (0.0-1.0); MEAN CELL VOLUME 86.2 fL CALC (80.0-100.0); MEAN CORPUSCULAR HGB CONC 33.6 g/L CALC (32.0-36.0); NEUT# 1.42 thou/uL (2.00-7.15); RED BLOOD COUNT 2.97 mill/uL (4.20-5.60); RED CELL DISTRI WIDTH 14.1 % (11.5-15.5)
[2017-02-19 05:33] LABS: ALBUMIN 2.9 g/dL (3.2-5.0); ALKALINE PHOSPHATASE 99 u/l (38-126); AMYLASE 74 u/l (30-110); ANION GAP 12 (6-22 (CALC)); BILIRUBIN, TOTAL 0.4 mg/dL (0.0-1.4); BUN 8 mg/dL (7-17); BUN/CREATININE RATIO 9 (12-20 (CALC)); CALCIUM 8.1 mg/dL (8.4-10.2); CARBON DIOXIDE 22 mmol/l (22-30); CHLORIDE 108 mmol/l (95-108); CREATININE 0.9 mg/dL (0.5-1.0); GFR > 60 ML/MIN (>=60 (CALC)); GFR FOR AFR.AMER. > 60 ML/MIN (>=60 (CALC)); GLUCOSE 84 mg/dL (65-105); LIPASE 425 u/l (23-300); POTASSIUM 3.6 mmol/l (3.5-5.1); SGOT/AST 28 u/l (14-36); SGPT/ALT 37 u/l (9-52); SODIUM 139 mmol/l (137-146); TOTAL PROTEIN 5.6 g/dL (6.3-8.2)
[2017-02-19 06:16] LABS: URINE BILIRUBIN - DIPSTICK NEGATIVE (NEGATIVE); URINE BLOOD DIPSTICK NEGATIVE (NEGATIVE); URINE CLARITY CLEAR; URINE COLOR YELLOW; URINE GLUCOSE - DIPSTICK NEGATIVE (NEGATIVE); URINE KETONE NEGATIVE (NEGATIVE); URINE LEUK ESTERASE NEGATIVE (NEGATIVE); URINE NITRITE - DIPSTICK NEGATIVE (Negative); URINE PROTEIN - DIPSTICK NEGATIVE (NEG-TRACE); URINE UROBILINOGEN - DIPSTICK 0.2 E.U./dL (0.2)
[2017-02-19 09:18] VITALS: BP 108/73
--- NOTE | 2017-02-19 11:42 | NUR ---
RELAXING IN BED, ALL NEEDS ADDRESSED, CALL SAMUEL IN REACH.
[2017-02-19 15:23] VITALS: BP 104/66
--- NOTE | 2017-02-19 16:56 | NUR ---
RESTING IN BED AND CRYING AT THIS TIME, ALL PTS JUST TRANSFERRED TO PACU FOR SAFETY REASONS DUE TO ETHAN'S THREATS, ENCOURAGED VERBALLY AND REASSURED STAFF WILL DO ALL IN THEIR [place] TO PROCURE SAFETY FOR ALL.
--- NOTE | 2017-02-19 19:00 | NUR ---
PATIENT RESTING IN BED IN PACU DUE TO HURRICAINE THREATS. PATIENT IS UPSET AND EMOTIONAL DUE TO IMPENDING WEATHER. PATIENT IS ALERT AND ORIENTEDX3. PATIENT STATES THAT HER PAIN I S 6/10 AT THIS TIME. IVF NS PATENT AND INFUSING VIA RIGHT UPPER CHEST PORT AT 60CC/HR. SITE APPEARS HEALTHY AT THIS TIME. PATIENT WITH ILEOSTOMY APPLIANCE IS INTACT WITH BROWN LIQUID DRAINAGE. INCISION LINE IS HEALTHY, INTACT AND WELL APPROXIMATED. PATIENT REASSURED. SAFETY PRECAUTIONS REINFORCED. CALL LIGHT IN REACH. WILL CONT TO MONITOR.
[2017-02-19 19:20] VITALS: BP 115/69
--- NOTE | 2017-02-19 22:15 | NUR ---
PATIENT RESTING IN BED REMAINS IN PACU DUE TO HURRICANE CONDITIONS. PATIENT MEDICATED FOR C/O PAIN WITH DILAUDID 1MG IVP ORDERED. PATIENT DECLINES ZOFRAN AT THIS TIME-STATES KAYCEE SHE MAY NEED IT LATER. PATIENT DID TAKE KRISTIAN COCKTAIL INSTEAD. CALL LIGHT IN REACH. WILL CONT TO MONITOR.
--- NOTE | 2017-02-19 23:58 | NUR ---
PATIENT RETURNED TO ROOM 279 VIA BED AFTER CODE EXIT LIFTED. PATIENT CONT TO HAVE IVF NS PATENT AND INFUSING AT 60CC/HR VIA RIGHT UPPER CHEST PORT. SITE APPEARS HEALTHY AT THIS TIME. CALL LIGHT IN REACH. WILL CONT TO MONITOR.
[2017-02-20 00:35] VITALS: BP 99/63
--- NOTE | 2017-02-20 02:30 | NUR ---
PATIENT RESTING IN BED AT THIS TIME. PATIENT IS C/O SEVERE RLQ ABD PAIN-7/10 ON PAIN SCALE. PATIENT MEDICATED WITH DILAUDID 1MG IVP FOR PAIN. PATIENT ALSO MEDICATED FOR ANXIETY WITH XANAX 0.5MG PO ORDERED. PATIENT IS ALSO ASKING NOT TO BE DISTURBED UNTIL AFTER 5AM SO THAT SHE CAN GET SOME REST. CALL LIGHT IN REACH. WILL CONT TO MONITOR.
[2017-02-20 05:03] VITALS: BP 102/60
--- NOTE | 2017-02-20 06:40 | NUR ---
PATIENT RESTING IN BED. AM LABS DRAWN FROM RIGHT UPPER CHEST PORT-GOOD BLOOD RETURN. PATIENT C/O SEVER RLQ PAIN AND MEDICATED WITH DILAUDID 1MG IVP ORDERED. ZOFRAN 4MG IVP GIVEN ORDERED. CALL LIGHT IN REACH. WILL CONT TO MONITOR.
[2017-02-20 07:34] LABS: HEMATOCRIT 25.2 % (37.0-47.0); HEMOGLOBIN 8.5 g/dl (12.0-16.0); MEAN CELL VOLUME 85.4 fL CALC (80.0-100.0); MEAN CORPUSCULAR HGB 28.8 pG CALC (26.0-32.0); MEAN CORPUSCULAR HGB CONC 33.7 g/L CALC (32.0-36.0); NEUT# 1.15 thou/uL (2.00-7.15); RED BLOOD COUNT 2.95 mill/uL (4.20-5.60); RED CELL DISTRI WIDTH 13.8 % (11.5-15.5)
[2017-02-20 07:46] VITALS: BP 112/62
[2017-02-20 07:53] LABS: AMYLASE 86 u/l (30-110); ANION GAP 13 (6-22 (CALC)); BUN 4 mg/dL (7-17); BUN/CREATININE RATIO 5 (12-20 (CALC)); CALCIUM 8.3 mg/dL (8.4-10.2); CARBON DIOXIDE 26 mmol/l (22-30); CHLORIDE 106 mmol/l (95-108); CREATININE 0.8 mg/dL (0.5-1.0); GFR > 60 ML/MIN (>=60 (CALC)); GFR FOR AFR.AMER. > 60 ML/MIN (>=60 (CALC)); GLUCOSE 84 mg/dL (65-105); LIPASE 378 u/l (23-300); POTASSIUM 3.6 mmol/l (3.5-5.1); SODIUM 141 mmol/l (137-146)
--- NOTE | 2017-02-20 08:00 | NUR ---
SHIFT CHANGE REPORT FROM MADISYN, EFRAIN SLEEPING BUT AWAKENED TO VERBAL STIMULI, IVF INFUSING, PAIN CONCERNS ADDRESSED, CALL SAMUEL IN REACH.
--- NOTE | 2017-02-20 11:30 | NUR ---
REPORT RECIEVED FROM ANATOLIY SOTO. ASSESSMENT COMPLETED. PT RECENTLY MEDICATED FOR ABD PAIN. POC DISCUSSED WITH PT. PT VERBALIZES UNDERSTANDING. WILL CONTINUE TO MONITOR. CALL LIGHT IN REACH.
[2017-02-20 15:32] VITALS: BP 110/72
--- NOTE | 2017-02-20 17:39 | NUR ---
PT MEDICATED AT THIS TIME WITH KRISTIAN GI COCKTAIL. RESP EVEN AND UNALBORED. WILL CONTINUE TO MONITOR. CALL LIGHT IN REACH.
--- NOTE | 2017-02-20 19:00 | NUR ---
RECEIVED SHIFT REPORT FROM KOFI HODGE. PATIENT SITTING UP IN BED IN CARROLL'S POSITION. NO APPARENT ACUTE DISTRESS NOTED AT THIS TIME. WILL CONTINUE TO MONITOR.
[2017-02-20 19:23] VITALS: BP 114/74
--- NOTE | 2017-02-20 22:40 | NUR ---
BEDSIDE REPORT RECEIVED FROM ANATOLIY RAJAN;PT RESTING IN SEMI FOWLERS POSITION;PT STATES THAT SHE KNOWS IT IS TO EARLY FOR HER PAIN MEDICATION BUT IN AN HOUR SHE WOULD LIKE HER XANAX,DILAUDID AND ZOFRAN;PT EDUCATED ON MEDICATION SCHEDULED AND VERBALIZES UNDERSTANDING;BED IN LOWEST POSITION WITH CALL LIGHT IN REACH;WILL CONTINUE TO MONITOR
--- NOTE | 2017-02-20 23:45 | NUR ---
PT REQUESTS PRN DILAUDID FOR ABDOMINAL PAIN RATING 8/10 ON THE PAIN SCALE;PT MEDICATED ACCORDINGLY;PRN ZOFRAN AND XANAX ALSO PROVIDED;IV FLUIDS INFUSING WELL TO RIGHT CHEST PORT;PT DENIES ANY OTHER NEEDS AT THIS TIME;CALL LIGHT IN REACH;WILL CONTINUE TO MONITOR
--- NOTE | 2017-02-21 03:35 | NUR ---
PT REQUESTS PRN PAIN MEDICATION FOR ABDOMINAL PAIN RATING 7/10 ON THE PAIN SCALE AND PRN ZOFRAN AT THIS TIME;PT MEDICATED ACCORDINGLY PER MD ORDERS;RESPIRATIONS EVEN AND UNLABORED ON RA;IV FLUIDS INFUSING WELL TO RIGHT CHEST PORT;PT DENIES ANY OTHER NEEDS AT THIS TIME;CALL LIGHT IN REACH;WILL CONTINUE TO MONITOR
[2017-02-21 06:01] VITALS: BP 112/72
--- NOTE | 2017-02-21 08:00 | NUR ---
REPORT RECIEVED FROM KOFI ZUÑIGA. ASSESSMENT COMPLETED. IVF INFUSING AT RPESCRIBED RATE. VSS. PT RECENTLY MEDICATED FOR PAIN. POC DISCUSSED WITH PT. PT VERBALIZES UNDERSTANDING. WILL CONTINUE TO MONITOR. CALL LIGHT IN REACH.
[2017-02-21 08:08] VITALS: BP 111/70
[2017-02-21 11:16] LABS: ALKALINE PHOSPHATASE 101 u/l (38-126); ANION GAP 11 (6-22 (CALC)); BILIRUBIN, TOTAL 0.4 mg/dL (0.0-1.4); BUN 6 mg/dL (7-17); BUN/CREATININE RATIO 6 (12-20 (CALC)); CALCIUM 8.4 mg/dL (8.4-10.2); CARBON DIOXIDE 27 mmol/l (22-30); CHLORIDE 105 mmol/l (95-108); CREATININE 0.9 mg/dL (0.5-1.0); GFR > 60 ML/MIN (>=60 (CALC)); GFR FOR AFR.AMER. > 60 ML/MIN (>=60 (CALC)); GLUCOSE 99 mg/dL (65-105); POTASSIUM 3.6 mmol/l (3.5-5.1); SGOT/AST 21 u/l (14-36); SGPT/ALT 32 u/l (9-52); SODIUM 139 mmol/l (137-146); TOTAL PROTEIN 5.7 g/dL (6.3-8.2)
--- NOTE | 2017-02-21 12:00 | NUR ---
PT RESTING IN BED WITH EYES CLOSED. RESP EVEN AND UNLABORED. WILL CONTINUE TO MONITOR. CALL LIGHT IN REACH.
[2017-02-21 15:36] VITALS: BP 103/61
--- NOTE | 2017-02-21 15:48 | NUR ---
TYPE AND CROSS DONE AT THIS TIME FOR BLOOD TRANSFUSION.
--- NOTE | 2017-02-21 19:30 | NUR ---
PATIENT RESTING IN BED AT THIS TIME IN NO ACUTE DISTRESS-ALERT AND ORIENTEDX3. PATIENT RIGHT UPPER CHEST PORT-HEP LOCK AT THIS TIME AND APPEARS HEALTHY. ILEOSTOMY APPLIANCE IN PLACE AND PATIENT CONT TO DO SELF CARE. CALL LIGHT INR EACH. WILL CONT TO MONITOR.
--- NOTE | 2017-02-21 20:45 | NUR ---
PATIENT MEDICATED WITH PERCOCET AND ZOFRAN PER PATIENT REQUEST-CONSENT FOR BLOOD TRANSFUSION OBTAINED. UNCLEAR WHEN BLOOD WILL BE AVAILABLE DUE TO PATIENT HAVING ANTIBODIES AND THE BLOOD WILL HAVE TO COME FROM VERMILLION. CALL LIGHT IN REACH. WILL CONT TO MONITOR.
[2017-02-21 23:56] VITALS: BP 104/60
[2017-02-22] VITALS (10 sets, daily range): BP systolic 96–119; BP diastolic 55–83
--- NOTE | 2017-02-22 01:00 | NUR ---
PATIENT APPEARS SLEEPING IN NO ACUTE DISTRESS. CALL LIGHT IN REACH. WILL CONT TO MONITOR.
--- NOTE | 2017-02-22 03:45 | NUR ---
PATIENT RESTING IN BED-C/O PAIN AND NAUSEA-MEDICATED WITH PERCOCET AND ZOFRAN. PATIENT ALSO MEDICATED WITH XANAX PER PATIENT REQUEST-STATES THAT SHE IS FEELING BAD. 1ST UNIT OF PRB'S HUNG VIA RIGHT UPPER CHEST PORT-GOOD BLOOD RETURN PRIOR TO BEGINING TRANSFUSION. PATIENT EDUCATED REGUARDING POSSIBLE ADVERSE REACTION FROM BLOOD TRANSFUSION. UNIT #[id number] STARTED. MONITORING PATIENT AT BEDSIDE PER PROTOCOL.
--- NOTE | 2017-02-22 06:40 | NUR ---
FINISHED 1ST UNIT OF PRBC'S WITHOUT ANY ADVERSE REACTION. LASIX 20MG IVP GIVEN ORDERED IN BETWEEN UNITS. RESTING IN BED AT THIS TIME. CALL LIGHT IN REACH. WILL CONT TO MONITOR.
--- NOTE | 2017-02-22 08:02 | NUR ---
REPORT RECEIVED FROM ANATOLIY MARS. PT SUPINE IN BED. REPORTS ABDOMINAL PAIN. PERCOCET PO ADMINISTERED. 2ND UNIT OF PRBC'S STARTED. PT EDUCATED ON S/S OF REACTION. DIRECTOR CHILD ABUSE THERAPY AT BEDSIDE FOR MONITORING PER POLICY.
--- NOTE | 2017-02-22 10:45 | NUR ---
2ND UNIT PRBC'S FINISHED AT THIS TIME. NO S/S REACTION. PT TOLERATED WELL.
--- NOTE | 2017-02-22 16:45 | NUR ---
PT REQUEST BOWEL SOUNDS AUSCULTATION. HYPERACTIVE BOWEL SOUNDS IN ALL 4 QUADRANTS NOTED. PT REPORTS NO CHANGE IN OSTOMY OUTPUT.
[2017-02-22 17:14] LABS: HEMATOCRIT 36.1 % (37.0-47.0); HEMOGLOBIN 12.1 g/dl (12.0-16.0); MEAN CELL VOLUME 83.2 fL CALC (80.0-100.0); MEAN CORPUSCULAR HGB 27.9 pG CALC (26.0-32.0); MEAN CORPUSCULAR HGB CONC 33.5 g/L CALC (32.0-36.0); NEUT# 2.65 thou/uL (2.00-7.15); RED BLOOD COUNT 4.34 mill/uL (4.20-5.60); RED CELL DISTRI WIDTH 14.5 % (11.5-15.5)
[2017-02-22 17:20] LABS: ANION GAP 13 (6-22 (CALC)); BUN 8 mg/dL (7-17); BUN/CREATININE RATIO 7 (12-20 (CALC)); CALCIUM 8.8 mg/dL (8.4-10.2); CARBON DIOXIDE 30 mmol/l (22-30); CHLORIDE 100 mmol/l (95-108); CREATININE 1.2 mg/dL (0.5-1.0); GFR 51 ML/MIN (>=60 (CALC)); GFR FOR AFR.AMER. > 60 ML/MIN (>=60 (CALC)); GLUCOSE 104 mg/dL (65-105); POTASSIUM 3.5 mmol/l (3.5-5.1); SODIUM 139 mmol/l (137-146)
[2017-02-22 17:56] LABS: AMYLASE 114 u/l (30-110); LIPASE 450 u/l (23-300)
--- NOTE | 2017-02-22 20:30 | NUR ---
PT RESTING IN SEMI FOWLERS POSITION;PT TEARFUL AT THIS TIME STATING "I NEED YOU TO TALK TO AND ASK HIM TO GIVE ME SOMETHING STRONGER,SOMETHING IV FOR PAIN CAUSE THE PERCOCET DOESN'T CUT IT"; TO BE NOTIFIED OF PT REQUEST;RIGHT CHEST PORT FLUSHED,PATENT,AND BLOOD RETURN PRESENT;ASSESSMENT COMPLETED;ILEOSTOMY NOTED,PT TAKES CARE OF IT ON HER OWN;SKIN INTACT;PT DENIES ANY OTHER NEEDS AT THIS TIME;SAFETY PRECAUTIONS REINFORCED;CALL LIGHT IN REACH;WILL CONTINUE TO MONITOR
--- NOTE | 2017-02-22 20:40 | NUR ---
NOTIFIED OF PT REQUEST OF IV PAIN MEDICATION;NEW ORDERS RECEIVED AT THIS TIME;WILL CONTINUE TO MONITOR
--- NOTE | 2017-02-22 21:00 | NUR ---
PT MEDICATED WITH PRN PERCOCET 10/325MG PO AT THIS TIME
--- NOTE | 2017-02-23 00:55 | NUR ---
PT REQUESTS PRN ANTIMETIC;PT MEDICATED WITH PRN PHENERGAN AT THIS TIME;PT DENIES ANY OTHER NEEDS;CALL LIGHT IN REACH;WILL CONTINUE TO MONITOR
[2017-02-23 03:55] VITALS: BP 96/60
--- NOTE | 2017-02-23 04:00 | NUR ---
PT COMPLAINS OF ABDOMINAL PAIN RATING 7/10 ON THE PAIN SCALE AND REQUESTS PRN PAIN AND NAUSEA MEDICATION;PT MEDICATED WITH PRN ZOFRAN & PERCOCET;PT DENIES ANY OTHER NEEDS AT THIS TIME;BED IN LOWEST POSITION WITH CALL LIGHT IN REACH;WILL CONTINUE TO MONITOR
[2017-02-23 07:49] VITALS: BP 110/79
--- NOTE | 2017-02-23 07:50 | NUR ---
REPORT RECEIVED FROM KOFI ZUÑIGA. PT SUPINE IN BED. REPORTS MODERATE ABDOMINAL PAIN AND NAUSEA. STATES "IM JUST MISERABLE." PRN MEDICATIONS REVIEWED. PLAN OF CARE DISCUSSED. CALL LIGHT REVIEWED AND IN REACH. PT STATES UNDERSTANDING.
[2017-02-23 08:43] LABS: HEMATOCRIT 39.4 % (37.0-47.0); IMMATURE GRANULOCYTES 0.3 % (0.0-1.0); MEAN CELL VOLUME 82.6 fL CALC (80.0-100.0); MEAN CORPUSCULAR HGB 27.3 pG CALC (26.0-32.0); NEUT# 2.17 thou/uL (2.00-7.15); RED BLOOD COUNT 4.77 mill/uL (4.20-5.60); RED CELL DISTRI WIDTH 14.3 % (11.5-15.5)
[2017-02-23 08:55] LABS: ALBUMIN 4.3 g/dL (3.2-5.0); ALKALINE PHOSPHATASE 132 u/l (38-126); AMYLASE 104 u/l (30-110); ANION GAP 16 (6-22 (CALC)); BILIRUBIN, TOTAL 1.1 mg/dL (0.0-1.4); BUN 10 mg/dL (7-17); BUN/CREATININE RATIO 10 (12-20 (CALC)); CALCIUM 8.9 mg/dL (8.4-10.2); CARBON DIOXIDE 29 mmol/l (22-30); CHLORIDE 95 mmol/l (95-108); GFR > 60 ML/MIN (>=60 (CALC)); GFR FOR AFR.AMER. > 60 ML/MIN (>=60 (CALC)); GLUCOSE 88 mg/dL (65-105); LIPASE 317 u/l (23-300); POTASSIUM 3.6 mmol/l (3.5-5.1); SGOT/AST 26 u/l (14-36); SGPT/ALT 36 u/l (9-52); SODIUM 136 mmol/l (137-146); TOTAL PROTEIN 7.3 g/dL (6.3-8.2)
--- NOTE | 2017-02-23 12:33 | NUR ---
PT STATES SHE IS AWAITING DISCHARGE ORDER.
[2017-02-23] MEDS ORDERED: SUCRALFATE1 GM PO (13:11)
[2017-02-23] MEDS ORDERED: TRANSDERM-1 MG/3 DAY TD (13:16)
== END 2017-02-23 14:10 | disposition home or self-care (01) | DRG 439 ==
LOC: ED 19:37 → ED-I 21:49 → ED 22:04 → MS2 22:05
PROVIDERS: Emergency Medicine; ADMIT Internal Medicine Geriatric Medicine; ATTEND Internal Medicine Geriatric Medicine
PROC: 30233N1 Transfusion of Nonautologous Red Blood Cells into Peripheral Vein, Percutaneous Approach (ICD-10-PCS; principal; 2017-02-22)
PROC: 30233N1 Transfusion of Nonautologous Red Blood Cells into Peripheral Vein, Percutaneous Approach (ICD-10-PCS; 2017-02-22)
DX: K86.1 Other chronic pancreatitis (principal); F19.20 Other psychoactive substance dependence, uncomplicated; E86.0 Dehydration; D64.9 Anemia, unspecified; F41.1 Generalized anxiety disorder; F32.9 Major depressive disorder, single episode, unspecified; R19.00 Intra-abdominal and pelvic swelling, mass and lump, unspecified site; Z90.49 Acquired absence of other specified parts of digestive tract; Z85.038 Personal history of other malignant neoplasm of large intestine; Z93.2 Ileostomy status
CPT/HCPCS: P9016; S0164

== ENCOUNTER 2017-03-28 20:35 | Emergency (ER) | payer BC ==
[~2017-03-28] VITALS: Ht 172.7 cm; Wt 71.4 kg
[~2017-03-28 20:35] MED LIST changes: +SUCRALFATE1 GM PO; +TRANSDERM-1 MG/3 DAY TD
[2017-03-28 22:20] VITALS: BP 121/81
== END 2017-03-28 22:21 | disposition home or self-care (01) | DRG 605 ==
LOC: ED 20:35
DX: S50.12XA Contusion of left forearm, initial encounter (principal); W21.07XA Struck by softball, initial encounter; Y93.64 Activity, baseball; Y92.320 Baseball field as the place of occurrence of the external cause

== ENCOUNTER 2017-09-09 18:22 | Emergency (ER) | payer BC, OTHER ==
[~2017-09-09] VITALS: Ht 172.7 cm; Wt 81.0 kg
[2017-09-09 19:38] LABS: HEMOGLOBIN 11.7 g/dl (12.0-16.0); IMMATURE GRANULOCYTES 0.2 % (0.0-1.0); MEAN CORPUSCULAR HGB CONC 32.5 g/L CALC (32.0-36.0); NEUT# 2.68 thou/uL (2.00-7.15); RED BLOOD COUNT 3.9 mill/uL (4.20-5.60); RED CELL DISTRI WIDTH 12.7 % (11.5-15.5)
[2017-09-09 19:49] LABS: MEAN CELL VOLUME 92.3 fL CALC (80.0-100.0)
[2017-09-09 20:11] LABS: ALBUMIN 3.8 g/dL (3.2-5.0); ALKALINE PHOSPHATASE 97 u/l (38-126); AMYLASE 100 u/l (30-110); ANION GAP 17 (6-22 (CALC)); BILIRUBIN, TOTAL 0.6 mg/dL (0.0-1.4); BUN 15 mg/dL (7-17); BUN/CREATININE RATIO 13 (12-20 (CALC)); CARBON DIOXIDE 24 mmol/l (22-30); CHLORIDE 103 mmol/l (95-108); CREATININE 1.1 mg/dL (0.5-1.0); GFR 56 ML/MIN (>=60 (CALC)); GFR FOR AFR.AMER. > 60 ML/MIN (>=60 (CALC)); LIPASE 389 u/l (23-300); POTASSIUM 4.1 mmol/l (3.5-5.1); SGOT/AST 26 u/l (14-36); SGPT/ALT 33 u/l (9-52); SODIUM 140 mmol/l (137-146); TOTAL PROTEIN 6.8 g/dL (6.3-8.2)
[2017-09-09 21:00] VITALS: BP 118/75
[2017-09-09] MEDS ORDERED: ESTRACE2 M1 PO (21:22)
== END 2017-09-09 21:15 | disposition home or self-care (01) | DRG 440 ==
LOC: ED 18:22
PROVIDERS: Family Medicine
DX: K86.1 Other chronic pancreatitis (principal); Z79.890 Hormone replacement therapy; Z86.010 Personal history of colon polyps; Z90.49 Acquired absence of other specified parts of digestive tract

== ENCOUNTER 2017-11-18 22:38 | Emergency (ER) | payer BC, OTHER ==
[~2017-11-18] VITALS: Ht 172.7 cm; Wt 83.2 kg
[~2017-11-18 22:38] MED LIST changes: +ESTRACE2 M1 PO
[2017-11-18] MEDS ORDERED: ULTRAM50 M1 PO (22:51)
[2017-11-18] MEDS ORDERED: PHENERGAN25 MG/TAB PO (22:52)
[2017-11-18 23:44] LABS: HEMATOCRIT 37.3 % (37.0-47.0); HEMOGLOBIN 12.3 g/dl (12.0-16.0); IMMATURE GRANULOCYTES 0.3 % (0.0-1.0); MEAN CELL VOLUME 89.7 fL CALC (80.0-100.0); MEAN CORPUSCULAR HGB 29.6 pG CALC (26.0-32.0); NEUT# 4.32 thou/uL (2.00-7.15); RED BLOOD COUNT 4.16 mill/uL (4.20-5.60); RED CELL DISTRI WIDTH 12.8 % (11.5-15.5)
[2017-11-19 00:09] LABS: ALBUMIN 3.8 g/dL (3.2-5.0); ALKALINE PHOSPHATASE 108 u/l (38-126); AMYLASE 131 u/l (30-110); ANION GAP 12 (6-22 (CALC)); BILIRUBIN, TOTAL 0.5 mg/dL (0.0-1.4); BUN 22 mg/dL (7-17); BUN/CREATININE RATIO 20 (12-20 (CALC)); CARBON DIOXIDE 20 mmol/l (22-30); CHLORIDE 109 mmol/l (95-108); CREATININE 1.1 mg/dL (0.5-1.0); GFR 56 ML/MIN (>=60 (CALC)); GFR FOR AFR.AMER. > 60 ML/MIN (>=60 (CALC)); LIPASE 407 u/l (23-300); POTASSIUM 3.6 mmol/l (3.5-5.1); SGOT/AST 26 u/l (14-36); SGPT/ALT 48 u/l (9-52); SODIUM 137 mmol/l (137-146); TOTAL PROTEIN 7.3 g/dL (6.3-8.2)
[2017-11-19] MEDS ORDERED: TRANSDERM-1 MG/3 DAY TOP (00:27)
[2017-11-19 01:00] VITALS: BP 128/84
== END 2017-11-19 01:00 | disposition home or self-care (01) | DRG 440 ==
LOC: ED 22:38
PROVIDERS: Family Medicine
DX: K86.1 Other chronic pancreatitis (principal); R10.11 Right upper quadrant pain; R10.13 Epigastric pain; R11.0 Nausea; R10.12 Left upper quadrant pain; Z85.038 Personal history of other malignant neoplasm of large intestine

== ENCOUNTER 2018-01-12 13:55 | Observation (INO) | payer BC, OTHER ==
[~2018-01-12] VITALS: Ht 172.7 cm; Wt 88.9 kg
[~2018-01-12 13:55] MED LIST changes: +TRANSDERM-1 MG/3 DAY TOP; +ULTRAM50 M1 PO
[2018-01-12 14:24] VITALS: BP 124/95
[2018-01-12 15:17] LABS: HEMATOCRIT 39.5 % (37.0-47.0); HEMOGLOBIN 13.5 g/dl (12.0-16.0); IMMATURE GRANULOCYTES 0.3 % (0.0-5.0); MEAN CELL VOLUME 87.6 fL CALC (80.0-100.0); MEAN CORPUSCULAR HGB 29.9 pG CALC (26.0-32.0); MEAN CORPUSCULAR HGB CONC 34.2 g/L CALC (32.0-36.0); NEUT# 4.22 thou/uL (2.00-7.15); RED BLOOD COUNT 4.51 mill/uL (4.20-5.60); RED CELL DISTRI WIDTH 12.3 % (11.5-15.5)
[2018-01-12 16:29] LABS: ALBUMIN 4.5 g/dL (3.2-5.0); ALKALINE PHOSPHATASE 127 u/l (38-126); ANION GAP 18 (6-22 (CALC)); BILIRUBIN, TOTAL 0.5 mg/dL (0.0-1.4); BUN 20 mg/dL (7-17); BUN/CREATININE RATIO 18 (12-20 (CALC)); CARBON DIOXIDE 26 mmol/l (22-30); CHLORIDE 99 mmol/l (95-108); CREATININE 1.1 mg/dL (0.5-1.0); GFR 56 ML/MIN (>=60 (CALC)); GFR FOR AFR.AMER. > 60 ML/MIN (>=60 (CALC)); SGOT/AST 38 u/l (14-36); SGPT/ALT 42 u/l (9-52); SODIUM 138 mmol/l (137-146); TOTAL PROTEIN 8.2 g/dL (6.3-8.2)
[2018-01-12 16:56] LABS: POTASSIUM 4.5 mmol/l (3.5-5.1)
[2018-01-12 19:00] VITALS: BP 129/84
[2018-01-12 21:49] LABS: URINE BILIRUBIN - DIPSTICK NEGATIVE (NEGATIVE); URINE BLOOD DIPSTICK TRACE-INTACT (NEGATIVE); URINE CLARITY TURBID; URINE COLOR YELLOW; URINE GLUCOSE - DIPSTICK NEGATIVE (NEGATIVE); URINE KETONE NEGATIVE (NEGATIVE); URINE LEUK ESTERASE MODERATE (Negative); URINE NITRITE - DIPSTICK NEGATIVE (Negative); URINE PH 5.5 (4.5-8.0); URINE PROTEIN - DIPSTICK NEGATIVE (NEG-TRACE); URINE SPECIFIC GRAVITY <=1.005; URINE UROBILINOGEN - DIPSTICK 0.2 E.U./dL (0.2)
[2018-01-12 22:11] LABS: URINE SQUAMOUS EPITHELIAL CELL FEW EPI/hpf (0-FEW)
[2018-01-12 22:12] LABS: URINE BACTERIA RARE hpf
[2018-01-13 05:06] VITALS: BP 107/71
[2018-01-13 05:54] LABS: ALBUMIN 3.9 g/dL (3.2-5.0); ALKALINE PHOSPHATASE 108 u/l (38-126); AMYLASE 90 u/l (30-110); ANION GAP 14 (6-22 (CALC)); BILIRUBIN, TOTAL 0.5 mg/dL (0.0-1.4); BUN 15 mg/dL (7-17); BUN/CREATININE RATIO 15 (12-20 (CALC)); CARBON DIOXIDE 24 mmol/l (22-30); CHLORIDE 101 mmol/l (95-108); GFR > 60 ML/MIN (>=60 (CALC)); GFR FOR AFR.AMER. > 60 ML/MIN (>=60 (CALC)); LIPASE 177 u/l (23-300); POTASSIUM 4.3 mmol/l (3.5-5.1); SGOT/AST 34 u/l (14-36); SGPT/ALT 33 u/l (9-52); SODIUM 135 mmol/l (137-146); TOTAL PROTEIN 7.2 g/dL (6.3-8.2)
[2018-01-13 06:41] LABS: HEMATOCRIT 38.9 % (37.0-47.0); HEMOGLOBIN 13.1 g/dl (12.0-16.0); IMMATURE GRANULOCYTES 0.4 % (0.0-5.0); MEAN CELL VOLUME 87.4 fL CALC (80.0-100.0); MEAN CORPUSCULAR HGB 29.4 pG CALC (26.0-32.0); MEAN CORPUSCULAR HGB CONC 33.7 g/L CALC (32.0-36.0); NEUT# 3.12 thou/uL (2.00-7.15); RED BLOOD COUNT 4.45 mill/uL (4.20-5.60); RED CELL DISTRI WIDTH 12.4 % (11.5-15.5)
[2018-01-13 08:02] VITALS: BP 112/73
== END 2018-01-13 14:31 | disposition home or self-care (01) | DRG 392 ==
LOC: MS2 13:55
PROVIDERS: ADMIT Internal Medicine Geriatric Medicine; ATTEND Internal Medicine Geriatric Medicine
DX: R10.31 Right lower quadrant pain (principal); R10.32 Left lower quadrant pain; D64.9 Anemia, unspecified; F41.1 Generalized anxiety disorder; F32.9 Major depressive disorder, single episode, unspecified; Z93.3 Colostomy status; Z90.49 Acquired absence of other specified parts of digestive tract
CPT/HCPCS: G0378; G0379

== ENCOUNTER 2018-04-13 14:53 | Observation (INO) | payer BC, OTHER ==
[~2018-04-13] VITALS: Ht 172.7 cm; Wt 93.6 kg
[2018-04-13] MEDS ORDERED: MOTRIN200 MG PO (15:40)
[2018-04-13 17:02] LABS: ALBUMIN 4.3 g/dL (3.2-5.0); ALKALINE PHOSPHATASE 112 u/l (38-126); AMYLASE 162 u/l (30-110); ANION GAP 15 (6-22 (CALC)); BILIRUBIN, TOTAL 0.7 mg/dL (0.0-1.4); BUN 21 mg/dL (7-17); BUN/CREATININE RATIO 20 (12-20 (CALC)); CARBON DIOXIDE 21 mmol/l (22-30); CHLORIDE 106 mmol/l (95-108); GFR > 60 ML/MIN (>=60 (CALC)); GFR FOR AFR.AMER. > 60 ML/MIN (>=60 (CALC)); LIPASE 722 u/l (23-300); POTASSIUM 3.7 mmol/l (3.5-5.1); SGOT/AST 34 u/l (14-36); SODIUM 138 mmol/l (137-146); TOTAL PROTEIN 7.7 g/dL (6.3-8.2)
[2018-04-13 17:08] LABS: HEMATOCRIT 35.8 % (37.0-47.0); HEMOGLOBIN 12.1 g/dl (12.0-16.0); IMMATURE GRANULOCYTES 0.7 % (0.0-5.0); MEAN CELL VOLUME 86.5 fL CALC (80.0-100.0); MEAN CORPUSCULAR HGB 29.2 pG CALC (26.0-32.0); MEAN CORPUSCULAR HGB CONC 33.8 g/L CALC (32.0-36.0); NEUT# 2.44 thou/uL (2.00-7.15); RED BLOOD COUNT 4.14 mill/uL (4.20-5.60)
[2018-04-13 19:43] LABS: URINE BILIRUBIN - DIPSTICK NEGATIVE (NEGATIVE); URINE BLOOD DIPSTICK NEGATIVE (NEGATIVE); URINE COLOR YELLOW; URINE GLUCOSE - DIPSTICK NEGATIVE (NEGATIVE); URINE KETONE NEGATIVE (NEGATIVE); URINE LEUK ESTERASE TRACE (NEGATIVE); URINE NITRITE - DIPSTICK NEGATIVE (Negative); URINE PH 6.5 (4.5-8.0); URINE PROTEIN - DIPSTICK NEGATIVE (NEG-TRACE); URINE SPECIFIC GRAVITY 1.015; URINE UROBILINOGEN - DIPSTICK 0.2 E.U./dL (0.2)
[2018-04-13 19:44] LABS: URINE CLARITY CLEAR
[2018-04-13 20:35] VITALS: BP 111/71
[2018-04-14 04:00] VITALS: BP 116/71
[2018-04-14 06:47] LABS: HEMATOCRIT 34.1 % (37.0-47.0); HEMOGLOBIN 11.5 g/dl (12.0-16.0); IMMATURE GRANULOCYTES 0.3 % (0.0-5.0); MEAN CELL VOLUME 88.3 fL CALC (80.0-100.0); MEAN CORPUSCULAR HGB 29.8 pG CALC (26.0-32.0); MEAN CORPUSCULAR HGB CONC 33.7 g/L CALC (32.0-36.0); NEUT# 1.63 thou/uL (2.00-7.15); RED BLOOD COUNT 3.86 mill/uL (4.20-5.60); RED CELL DISTRI WIDTH 13.1 % (11.5-15.5)
[2018-04-14 07:04] LABS: ALBUMIN 3.5 g/dL (3.2-5.0); ALKALINE PHOSPHATASE 96 u/l (38-126); ANION GAP 11 (6-22 (CALC)); BILIRUBIN, TOTAL 0.6 mg/dL (0.0-1.4); BUN 18 mg/dL (7-17); BUN/CREATININE RATIO 16 (12-20 (CALC)); CARBON DIOXIDE 22 mmol/l (22-30); CHLORIDE 109 mmol/l (95-108); CREATININE 1.1 mg/dL (0.5-1.0); GFR 56 ML/MIN (>=60 (CALC)); GFR FOR AFR.AMER. > 60 ML/MIN (>=60 (CALC)); LIPASE 436 u/l (23-300); POTASSIUM 3.6 mmol/l (3.5-5.1); SGOT/AST 35 u/l (14-36); SODIUM 138 mmol/l (137-146); TOTAL PROTEIN 6.4 g/dL (6.3-8.2)
[2018-04-14 16:40] VITALS: BP 103/69
[2018-04-14 19:32] VITALS: BP 121/78
[2018-04-15 04:00] VITALS: BP 121/74
[2018-04-15 06:08] LABS: HEMATOCRIT 33.4 % (37.0-47.0); HEMOGLOBIN 11.3 g/dl (12.0-16.0); IMMATURE GRANULOCYTES 0.4 % (0.0-5.0); MEAN CELL VOLUME 86.8 fL CALC (80.0-100.0); MEAN CORPUSCULAR HGB 29.4 pG CALC (26.0-32.0); MEAN CORPUSCULAR HGB CONC 33.8 g/L CALC (32.0-36.0); NEUT# 6.43 thou/uL (2.00-7.15); RED BLOOD COUNT 3.85 mill/uL (4.20-5.60); RED CELL DISTRI WIDTH 12.8 % (11.5-15.5)
[2018-04-15 06:42] LABS: ALBUMIN 3.5 g/dL (3.2-5.0); ALKALINE PHOSPHATASE 106 u/l (38-126); AMYLASE 109 u/l (30-110); ANION GAP 11 (6-22 (CALC)); BILIRUBIN, TOTAL 0.8 mg/dL (0.0-1.4); BUN 10 mg/dL (7-17); BUN/CREATININE RATIO 12 (12-20 (CALC)); CARBON DIOXIDE 23 mmol/l (22-30); CHLORIDE 104 mmol/l (95-108); CREATININE 0.9 mg/dL (0.5-1.0); GFR > 60 ML/MIN (>=60 (CALC)); GFR FOR AFR.AMER. > 60 ML/MIN (>=60 (CALC)); LIPASE 336 u/l (23-300); POTASSIUM 3.2 mmol/l (3.5-5.1); SGOT/AST 33 u/l (14-36); SODIUM 135 mmol/l (137-146); TOTAL PROTEIN 6.5 g/dL (6.3-8.2)
[2018-04-15 08:46] VITALS: BP 115/77
== END 2018-04-15 14:35 | disposition home or self-care (01) | DRG 440 ==
LOC: ED 14:53 → ED-I 19:39 → ED 19:53 → MS2 19:54
PROVIDERS: ADMIT Internal Medicine Geriatric Medicine; ATTEND Internal Medicine Geriatric Medicine
DX: K85.90 Acute pancreatitis without necrosis or infection, unspecified (principal); K86.1 Other chronic pancreatitis; F41.9 Anxiety disorder, unspecified; F32.9 Major depressive disorder, single episode, unspecified; Z90.49 Acquired absence of other specified parts of digestive tract; Z93.2 Ileostomy status
CPT/HCPCS: G0378; Q9967; S0164

== ENCOUNTER 2018-05-28 15:40 | Observation (INO) | payer SELFPAY ==
[~2018-05-28] VITALS: Ht 172.7 cm; Wt 93.2 kg
[~2018-05-28 15:40] MED LIST changes: +MOTRIN200 MG PO
[2018-05-28 17:29] LABS: HEMATOCRIT 38.7 % (37.0-47.0); HEMOGLOBIN 12.8 g/dl (12.0-16.0); IMMATURE GRANULOCYTES 0.1 % (0.0-5.0); MEAN CELL VOLUME 87.6 fL CALC (80.0-100.0); MEAN CORPUSCULAR HGB CONC 33.1 g/L CALC (32.0-36.0); NEUT# 4.76 thou/uL (2.00-7.15); RED BLOOD COUNT 4.42 mill/uL (4.20-5.60)
[2018-05-28 17:31] LABS: URINE BILIRUBIN - DIPSTICK NEGATIVE (NEGATIVE); URINE BLOOD DIPSTICK NEGATIVE (NEGATIVE); URINE COLOR YELLOW; URINE GLUCOSE - DIPSTICK NEGATIVE (NEGATIVE); URINE KETONE NEGATIVE (NEGATIVE); URINE LEUK ESTERASE NEGATIVE (NEGATIVE); URINE NITRITE - DIPSTICK NEGATIVE (Negative); URINE PROTEIN - DIPSTICK NEGATIVE (NEG-TRACE); URINE SPECIFIC GRAVITY 1.015; URINE UROBILINOGEN - DIPSTICK 0.2 E.U./dL (0.2)
[2018-05-28 17:47] LABS: BILIRUBIN, TOTAL 0.9 mg/dL (0.0-1.4); CREATININE 1.4 mg/dL (0.5-1.0); TOTAL PROTEIN 7.7 g/dL (6.3-8.2)
[2018-05-28 17:48] LABS: ALBUMIN 4.4 g/dL (3.2-5.0); POTASSIUM 4.1 mmol/l (3.5-5.1)
[2018-05-28 20:30] VITALS: BP 133/78
[2018-05-28 22:07] LABS: AMYLASE 120 u/l (30-110); LIPASE 465 u/l (23-300)
[2018-05-29 04:16] VITALS: BP 109/62
[2018-05-29 05:23] LABS: HEMATOCRIT 33.4 % (37.0-47.0); HEMOGLOBIN 11.2 g/dl (12.0-16.0); IMMATURE GRANULOCYTES 0.2 % (0.0-5.0); MEAN CELL VOLUME 87.9 fL CALC (80.0-100.0); MEAN CORPUSCULAR HGB 29.5 pG CALC (26.0-32.0); MEAN CORPUSCULAR HGB CONC 33.5 g/L CALC (32.0-36.0); NEUT# 2.04 thou/uL (2.00-7.15); RED BLOOD COUNT 3.8 mill/uL (4.20-5.60)
[2018-05-29 05:37] LABS: ALKALINE PHOSPHATASE 106 u/l (38-126); ANION GAP 11 (6-22 (CALC)); BILIRUBIN, TOTAL 0.7 mg/dL (0.0-1.4); BUN 20 mg/dL (7-17); BUN/CREATININE RATIO 17 (12-20 (CALC)); CARBON DIOXIDE 22 mmol/l (22-30); CHLORIDE 106 mmol/l (95-108); CREATININE 1.2 mg/dL (0.5-1.0); GFR 51 ML/MIN (>=60 (CALC)); GFR FOR AFR.AMER. > 60 ML/MIN (>=60 (CALC)); POTASSIUM 3.4 mmol/l (3.5-5.1); SGOT/AST 34 u/l (14-36); SODIUM 135 mmol/l (137-146); TOTAL PROTEIN 6.3 g/dL (6.3-8.2)
[2018-05-29 05:50] LABS: ALBUMIN 3.5 g/dL (3.2-5.0)
[2018-05-29 08:30] VITALS: BP 158/82
[2018-05-29 15:45] VITALS: BP 139/77
[2018-05-29 19:27] VITALS: BP 113/79
[2018-05-30 04:25] VITALS: BP 128/85
[2018-05-30 05:15] LABS: HEMATOCRIT 33.2 % (37.0-47.0); HEMOGLOBIN 10.8 g/dl (12.0-16.0); MEAN CELL VOLUME 89.5 fL CALC (80.0-100.0); MEAN CORPUSCULAR HGB 29.1 pG CALC (26.0-32.0); MEAN CORPUSCULAR HGB CONC 32.5 g/L CALC (32.0-36.0); NEUT# 1.59 thou/uL (2.00-7.15); RED BLOOD COUNT 3.71 mill/uL (4.20-5.60); RED CELL DISTRI WIDTH 12.8 % (11.5-15.5)
[2018-05-30 05:33] LABS: ALKALINE PHOSPHATASE 94 u/l (38-126); ANION GAP 10 (6-22 (CALC)); BILIRUBIN, TOTAL 0.2 mg/dL (0.0-1.4); BUN 11 mg/dL (7-17); BUN/CREATININE RATIO 12 (12-20 (CALC)); CARBON DIOXIDE 23 mmol/l (22-30); CHLORIDE 110 mmol/l (95-108); GFR > 60 ML/MIN (>=60 (CALC)); GFR FOR AFR.AMER. > 60 ML/MIN (>=60 (CALC)); POTASSIUM 3.4 mmol/l (3.5-5.1); SGOT/AST 28 u/l (14-36); SODIUM 139 mmol/l (137-146); TOTAL PROTEIN 5.8 g/dL (6.3-8.2)
[2018-05-30 08:27] VITALS: BP 145/84
== END 2018-05-30 12:30 | disposition home or self-care (01) | DRG 392 ==
LOC: ED 15:40 → ED-I 16:17 → ED 19:15 → MS2 19:16
PROVIDERS: Family Medicine; ADMIT Internal Medicine Geriatric Medicine; ATTEND Internal Medicine Geriatric Medicine
DX: R10.31 Right lower quadrant pain (principal); R10.32 Left lower quadrant pain; R11.2 Nausea with vomiting, unspecified; G89.29 Other chronic pain; M79.662 Pain in left lower leg; R25.2 Cramp and spasm; F41.1 Generalized anxiety disorder; F32.9 Major depressive disorder, single episode, unspecified; Z90.49 Acquired absence of other specified parts of digestive tract; Z93.4 Other artificial openings of gastrointestinal tract status; Z86.010 Personal history of colon polyps; Z90.721 Acquired absence of ovaries, unilateral; Z90.710 Acquired absence of both cervix and uterus
CPT/HCPCS: G0378; J1650; Q9967

== ENCOUNTER 2018-06-25 11:00 | Observation (INO) | payer SELFPAY ==
[~2018-06-25] VITALS: Ht 172.7 cm; Wt 92.2 kg
[2018-06-25] MEDS ORDERED: MULTI VITAMIN D1 TAB PO (13:02)
[2018-06-25 13:17] LABS: URINE BILIRUBIN - DIPSTICK NEGATIVE (NEGATIVE); URINE BLOOD DIPSTICK NEGATIVE (NEGATIVE); URINE COLOR YELLOW; URINE GLUCOSE - DIPSTICK NEGATIVE (NEGATIVE); URINE KETONE NEGATIVE (NEGATIVE); URINE LEUK ESTERASE NEGATIVE (NEGATIVE); URINE NITRITE - DIPSTICK NEGATIVE (Negative); URINE PROTEIN - DIPSTICK 100 mg/dL (NEG-TRACE); URINE SPECIFIC GRAVITY >=1.030; URINE UROBILINOGEN - DIPSTICK 0.2 E.U./dL (0.2)
[2018-06-25 13:18] LABS: URINE AMORPH SEDIMENT MANY hpf (NONE-FEW); URINE EPITHELIAL CELLS MODERATE EPI/hpf (0-FEW)
[2018-06-25 13:24] LABS: IMMATURE GRANULOCYTES 0.3 % (0.0-5.0); MEAN CELL VOLUME 87.2 fL CALC (80.0-100.0); MEAN CORPUSCULAR HGB 29.3 pG CALC (26.0-32.0); MEAN CORPUSCULAR HGB CONC 33.6 g/L CALC (32.0-36.0); NEUT# 8.73 thou/uL (2.00-7.15); RED BLOOD COUNT 4.68 mill/uL (4.20-5.60); RED CELL DISTRI WIDTH 13.8 % (11.5-15.5)
[2018-06-25 13:25] LABS: HEMATOCRIT 40.8 % (37.0-47.0); HEMOGLOBIN 13.7 g/dl (12.0-16.0)
[2018-06-25 13:40] LABS: BILIRUBIN, TOTAL 1.1 mg/dL (0.0-1.4); CREATININE 1.3 mg/dL (0.5-1.0); POTASSIUM 3.8 mmol/l (3.5-5.1)
[2018-06-25 13:42] LABS: ALBUMIN 5.1 g/dL (3.2-5.0); TOTAL PROTEIN 8.6 g/dL (6.3-8.2)
[2018-06-25] MEDS ORDERED: VITAMIN D1000 UNIT PO (14:57)
[2018-06-25 18:30] VITALS: BP 128/72
[2018-06-25 19:15] VITALS: BP 139/82
[2018-06-26 04:10] VITALS: BP 107/71
[2018-06-26 06:19] LABS: HEMATOCRIT 36.3 % (37.0-47.0); HEMOGLOBIN 12.1 g/dl (12.0-16.0); IMMATURE GRANULOCYTES 0.2 % (0.0-5.0); MEAN CELL VOLUME 87.9 fL CALC (80.0-100.0); MEAN CORPUSCULAR HGB 29.3 pG CALC (26.0-32.0); MEAN CORPUSCULAR HGB CONC 33.3 g/L CALC (32.0-36.0); NEUT# 2.21 thou/uL (2.00-7.15); RED BLOOD COUNT 4.13 mill/uL (4.20-5.60); RED CELL DISTRI WIDTH 13.6 % (11.5-15.5)
[2018-06-26 06:39] LABS: ALKALINE PHOSPHATASE 109 u/l (38-126); ANION GAP 13 (6-22 (CALC)); BILIRUBIN, TOTAL 1.1 mg/dL (0.0-1.4); BUN 19 mg/dL (7-17); BUN/CREATININE RATIO 15 (12-20 (CALC)); CARBON DIOXIDE 25 mmol/l (22-30); CHLORIDE 102 mmol/l (95-108); CREATININE 1.2 mg/dL (0.5-1.0); GFR 51 ML/MIN (>=60 (CALC)); GFR FOR AFR.AMER. > 60 ML/MIN (>=60 (CALC)); POTASSIUM 3.7 mmol/l (3.5-5.1); SGOT/AST 41 u/l (14-36); SODIUM 136 mmol/l (137-146)
[2018-06-26 07:30] VITALS: BP 127/82
[2018-06-26 15:02] VITALS: BP 110/63
[2018-06-26 19:30] VITALS: BP 121/82
[2018-06-27 04:00] VITALS: BP 128/75
[2018-06-27 05:44] LABS: HEMATOCRIT 34.2 % (37.0-47.0); HEMOGLOBIN 11.3 g/dl (12.0-16.0); IMMATURE GRANULOCYTES 0.3 % (0.0-5.0); MEAN CELL VOLUME 89.3 fL CALC (80.0-100.0); MEAN CORPUSCULAR HGB 29.5 pG CALC (26.0-32.0); NEUT# 2.05 thou/uL (2.00-7.15); RED BLOOD COUNT 3.83 mill/uL (4.20-5.60); RED CELL DISTRI WIDTH 13.2 % (11.5-15.5)
[2018-06-27 06:03] LABS: ANION GAP 10 (6-22 (CALC)); BUN 12 mg/dL (7-17); BUN/CREATININE RATIO 11 (12-20 (CALC)); CARBON DIOXIDE 26 mmol/l (22-30); CHLORIDE 104 mmol/l (95-108); CREATININE 1.1 mg/dL (0.5-1.0); GFR 56 ML/MIN (>=60 (CALC)); GFR FOR AFR.AMER. > 60 ML/MIN (>=60 (CALC)); POTASSIUM 4.2 mmol/l (3.5-5.1); SODIUM 136 mmol/l (137-146)
[2018-06-27 07:15] VITALS: BP 107/84
== END 2018-06-27 09:59 | disposition home or self-care (01) | DRG 392 ==
LOC: ED 11:00 → ED-I 16:50 → ED 17:05 → ICU 17:06
PROVIDERS: Emergency Medicine; ADMIT Internal Medicine Geriatric Medicine; ATTEND Internal Medicine Geriatric Medicine
DX: R10.31 Right lower quadrant pain (principal); G89.29 Other chronic pain; R11.2 Nausea with vomiting, unspecified; F41.9 Anxiety disorder, unspecified; F32.9 Major depressive disorder, single episode, unspecified; Z86.19 Personal history of other infectious and parasitic diseases; Z93.2 Ileostomy status; Z90.49 Acquired absence of other specified parts of digestive tract; Z87.19 Personal history of other diseases of the digestive system; Z90.710 Acquired absence of both cervix and uterus
CPT/HCPCS: S0164

== ENCOUNTER 2018-08-31 20:15 | Observation (INO) | payer BC, OTHER ==
[~2018-08-31] VITALS: Ht 172.7 cm; Wt 94.0 kg
[~2018-08-31 20:15] MED LIST changes: +MULTI VITAMIN D1 TAB PO; +VITAMIN D1000 UNIT PO
[2018-08-31] MEDS ORDERED: CALCI23 PO (20:38)
--- NOTE | 2018-08-31 20:42 | NUR ---
PT TRIAGED, AMBULATES TO TX ROOM WITH STABLE GAIT. PT CHANGED INTO GOWN.
--- NOTE | 2018-08-31 20:43 | NUR ---
PT. WITH C/O NAUSEA VOMITING AND ABD. PAIN FOR APPROX. 3-4 HR'S. ABD. SOFT WITH + BOWEL SOUNDS PT. HAS A COLOSTOMY.
[2018-08-31 21:11] LABS: URINE BILIRUBIN - DIPSTICK NEGATIVE (NEGATIVE); URINE BLOOD DIPSTICK NEGATIVE (NEGATIVE); URINE COLOR YELLOW; URINE GLUCOSE - DIPSTICK NEGATIVE (NEGATIVE); URINE KETONE NEGATIVE (NEGATIVE); URINE LEUK ESTERASE NEGATIVE (NEGATIVE); URINE NITRITE - DIPSTICK NEGATIVE (Negative); URINE PH 5.5 (4.5-8.0); URINE PROTEIN - DIPSTICK NEGATIVE (NEG-TRACE); URINE UROBILINOGEN - DIPSTICK 0.2 E.U./dL (0.2)
--- NOTE | 2018-08-31 21:40 | NUR ---
IVF, IV PAIN MEDS AND IM ANTIEMETIC GIVEN PER MD ORDER.
[2018-08-31 21:45] LABS: HEMATOCRIT 40.3 % (37.0-47.0); HEMOGLOBIN 13.3 g/dl (12.0-16.0); IMMATURE GRANULOCYTES 0.4 % (0.0-5.0); MEAN CELL VOLUME 88.2 fL CALC (80.0-100.0); MEAN CORPUSCULAR HGB 29.1 pG CALC (26.0-32.0); NEUT# 5.12 thou/uL (2.00-7.15); RED BLOOD COUNT 4.57 mill/uL (4.20-5.60)
[2018-08-31 22:00] LABS: ALBUMIN 4.8 g/dL (3.2-5.0); ALKALINE PHOSPHATASE 157 u/l (38-126); AMYLASE 153 u/l (30-110); ANION GAP 17 (6-22 (CALC)); BILIRUBIN, TOTAL 0.7 mg/dL (0.0-1.4); BUN 19 mg/dL (7-17); BUN/CREATININE RATIO 16 (12-20 (CALC)); CARBON DIOXIDE 24 mmol/l (22-30); CHLORIDE 102 mmol/l (95-108); CREATININE 1.2 mg/dL (0.5-1.0); GFR 51 ML/MIN (>=60 (CALC)); GFR FOR AFR.AMER. > 60 ML/MIN (>=60 (CALC)); LIPASE 815 u/l (23-300); POTASSIUM 3.7 mmol/l (3.5-5.1); SGOT/AST 48 u/l (14-36); SODIUM 140 mmol/l (137-146)
--- NOTE | 2018-08-31 22:23 | NUR ---
IN ROOM TO DISCUSS CLINICAL FINDINGS WITH PT. VERBALIZED UNDERSTANDING. ALSO MADE HER AWARE OF ADMISSION.
--- NOTE | 2018-08-31 22:46 | NUR ---
PT. STATES HER ABD. PAIN HAS NOW DECREASED TO A 4 ON A SCALE OF 1-10.
--- NOTE | 2018-08-31 22:55 | NUR ---
Admission Note Report Given to: YAMEL RN Transported by: Wheelchair X Stretcher Transported with: X Nurse Transporter X Patent IV O2 [employer] Support Planner
--- NOTE | 2018-08-31 23:00 | NUR ---
PT.TAKEN TO MS FLOOR VIA W/C NO C/O AT THIS TIME.
[2018-08-31 23:27] VITALS: BP 139/96
--- NOTE | 2018-08-31 23:30 | NUR ---
PT ARRIVED TO FLOOR VIA WHEELCHAIR ACCOMPANIED BY MANJU, ANATOLIY, AND FAMILY. PT ALERT AND ORIENTED. PT AMULATED TO SCALE AND BED, GATE STEADY. PT REPORTS HAVING PAIN OF A 6 OUT OF 10. PT EDUCATED ON MEDICATION SCHEDULE. VS OBTAINED AND ASSESSMENT COMPLETED. ILEOSTOMY NOTED. PORT ACCESSED BY ED, FLUSHES WELL, IV FLUIDS HUNG AND INFUSING. PT ORIENTED TO ROOM AND CALL SAMUEL SYSTEM. SAFETY PRECAUTIONS IN PLACE. WILL CONTINUE TO MONITOR.
--- NOTE | 2018-09-01 01:40 | NUR ---
PT REPORTING PAIN OF [address] TOWNSEND NOTIFIED OF PT PAIN NEW ORDERS OBTAINED. PT TO BE MEDICATED.
[2018-09-01 04:36] VITALS: BP 114/69
--- NOTE | 2018-09-01 04:56 | NUR ---
PT RESTING IN BED WITH EYES CLOSED, NO SIGNS OR SYMPTOMS OF DISTRESS, SAFETY PRECAUTIONS IN PLACE, WILL CONTINUE TO MONITOR.
[2018-09-01 06:22] LABS: HEMOGLOBIN 11.4 g/dl (12.0-16.0); IMMATURE GRANULOCYTES 0.2 % (0.0-5.0); MEAN CELL VOLUME 87.7 fL CALC (80.0-100.0); MEAN CORPUSCULAR HGB 29.2 pG CALC (26.0-32.0); MEAN CORPUSCULAR HGB CONC 33.3 g/L CALC (32.0-36.0); NEUT# 2.61 thou/uL (2.00-7.15); RED BLOOD COUNT 3.9 mill/uL (4.20-5.60)
[2018-09-01 06:23] LABS: HEMATOCRIT 34.2 % (37.0-47.0)
[2018-09-01 07:20] LABS: ALKALINE PHOSPHATASE 115 u/l (38-126); ANION GAP 11 (6-22 (CALC)); BILIRUBIN, TOTAL 0.6 mg/dL (0.0-1.4); BUN 15 mg/dL (7-17); BUN/CREATININE RATIO 15 (12-20 (CALC)); CARBON DIOXIDE 22 mmol/l (22-30); CHLORIDE 110 mmol/l (95-108); CREATININE 1.1 mg/dL (0.5-1.0); GFR 56 ML/MIN (>=60 (CALC)); GFR FOR AFR.AMER. > 60 ML/MIN (>=60 (CALC)); POTASSIUM 3.7 mmol/l (3.5-5.1); SGOT/AST 47 u/l (14-36); SODIUM 140 mmol/l (137-146)
[2018-09-01 07:21] LABS: ALBUMIN 3.5 g/dL (3.2-5.0); TOTAL PROTEIN 6.2 g/dL (6.3-8.2)
[2018-09-01 07:21] LABS: AMYLASE 110 u/l (30-110); LIPASE 490 u/l (23-300)
[2018-09-01 07:51] VITALS: BP 116/78
--- NOTE | 2018-09-01 08:55 | NUR ---
ASSESSMENT DONE . PT IS A&O X3. RESPS EVEN AND UNLABORED. PT DENIES ANY PAIN. COLOSTOMY IN PLACE. IVF INFUSING WELL. DR. TOWNSEND AT BEDSIDE TO ASSESS PT. NOTIFIED MD THAT PT REFUSED THE GASTROGRAFIN. MD STATED HE WILL CHANGE ORDERS TO IV. PT DENIES ANY OTHER NEEDS AT THIS TIME. CALL LIGHT IN REACH.
--- NOTE | 2018-09-01 11:17 | NUR ---
PT IS RESTING IN BED ON HER LEFT SIDE. PT STATED PAIN ABD 5/10 BUT DENIES ANY PAIN MEDICATION AT THIS TIME. PT DENIES ANY NEEDS AT THIS TIME. CALL LIGHT IN REACH.
--- NOTE | 2018-09-01 16:10 | NUR ---
PT STATED PAIN IN ABD 10/19. IVF INFUSING WELL. CALL LIGHT IN REACH. CALLED DR. BARRON RE: PT HAIVNG PAIN AND NO MEDICATIONS DUE AT THIS TIME . ORDERS RECEIVED.
[2018-09-01 16:53] VITALS: BP 107/72
[2018-09-01 18:45] VITALS: BP 116/75
--- NOTE | 2018-09-01 19:35 | NUR ---
REPORT RECIVED FROM ANATOLIY AVILA. PT RESTING IN BED, ALERT AND ORIENTED. REPIRATIONS EVEN AND UNLABORED, ON RA, LUNGS SOUND CLEAR. PORT FLUSHED AND IV FLUIDS INFUSING WELL. PT REPORTS NAUSEA, MEDICATED PER EMAR ORDERS. SKIN INTACT. ILEOSTOMY NOTED APPEARS HEALTHY. SAFETY PRECAUTIONS IN PLACE. WILL CONTINUE TO MONITOR.
--- NOTE | 2018-09-02 00:46 | NUR ---
PT RESTING IN BED. NO SIGNS OR SYMPTOMS OF DISTRESS AT THIS TIME WILL CONTINUE TO MONITOR.
[2018-09-02 03:56] VITALS: BP 115/78
--- NOTE | 2018-09-02 05:28 | NUR ---
PT RESTING IN BED. ALERT AND ORIENTED. REPORTS PAIN OF A 3 OUT OF 10. PT REPOSITIONED. PORT PATENT, INFUSING D5 1/2 NS. PT DENIES ANY NEEDS AT THIS TIME. SAFETY PRECAUTIONS IN PLACE. WILL CONTINUE TO MONITOR.
[2018-09-02 05:54] LABS: ALBUMIN 3.3 g/dL (3.2-5.0); ALKALINE PHOSPHATASE 120 u/l (38-126); AMYLASE 102 u/l (30-110); ANION GAP 10 (6-22 (CALC)); BILIRUBIN, TOTAL 0.6 mg/dL (0.0-1.4); BUN 8 mg/dL (7-17); BUN/CREATININE RATIO 8 (12-20 (CALC)); CARBON DIOXIDE 25 mmol/l (22-30); CHLORIDE 108 mmol/l (95-108); GFR > 60 ML/MIN (>=60 (CALC)); GFR FOR AFR.AMER. > 60 ML/MIN (>=60 (CALC)); LIPASE 359 u/l (23-300); POTASSIUM 3.5 mmol/l (3.5-5.1); SGOT/AST 39 u/l (14-36); SODIUM 139 mmol/l (137-146); TOTAL PROTEIN 5.9 g/dL (6.3-8.2)
[2018-09-02 07:05] LABS: HEMATOCRIT 34.6 % (37.0-47.0); HEMOGLOBIN 11.6 g/dl (12.0-16.0); IMMATURE GRANULOCYTES 0.2 % (0.0-5.0); MEAN CELL VOLUME 88.7 fL CALC (80.0-100.0); MEAN CORPUSCULAR HGB 29.7 pG CALC (26.0-32.0); MEAN CORPUSCULAR HGB CONC 33.5 g/L CALC (32.0-36.0); NEUT# 2.26 thou/uL (2.00-7.15); RED BLOOD COUNT 3.9 mill/uL (4.20-5.60); RED CELL DISTRI WIDTH 12.9 % (11.5-15.5)
[2018-09-02 07:36] VITALS: BP 126/84
--- NOTE | 2018-09-02 08:49 | NUR ---
PER PT REQUEST MEDICATED PT WITH DILAUDID FOR PAIN 11/19 IN ABD. ASSESSMENT DONE. IVF INFUSING WELL. RESPS EVEN UNLABORED. PT DENIES ANY OTHER NEEDS AT THIS TIME. CALL LIGHT IN REACH.
--- NOTE | 2018-09-02 12:28 | NUR ---
MEDICATED PT WITH ZOFRAN SEE EMAR. PT STATED PAIN IN ABD IS LESS 3/10. PT DENIES ANY OTHER NEEDS AT THIS TIME. CALL LIGHT IN REACH.
--- NOTE | 2018-09-02 15:21 | NUR ---
MEDICATED PT WITH LORTAB FOR PAIN IN ABD 11/19. PT DENIES ANY OTHER NEEDS AT THIS TIME. CALL LIGHT IN REACH.
[2018-09-02 15:25] VITALS: BP 126/74
--- NOTE | 2018-09-02 19:00 | NUR ---
REPORT RECEIVED FROM ANATOLIY AVILA. PT RESTING IN BED. RESPIRATIONS EVEN AND UNLABORED ON RA. SAFETY PRECAUTIONS IN PLACE. WILL CONTINUE TO MONITOR.
[2018-09-02 19:23] VITALS: BP 124/77
--- NOTE | 2018-09-02 20:46 | NUR ---
PT RESTING IN BED. ALERT AND ORIENTED. RESPIRATIONS EVEN AND UNLABORED ON RA, LUNGS CLEAR. PT REPORTS PAIN OF A 7 OUT OF 10, PT MEDICATED PER EMAR ORDERS. PORT FLUSHES WELL WITH BLOOD RETURN. SAFETY PRECAUTIONS IN PLACE. WILL CONTINUE TO MONITOR.
--- NOTE | 2018-09-03 00:15 | NUR ---
PT RESTING IN BED. PT DENIES ANY NEEDS AT THIS TIME. NO SIGNS OR SYMPTOMS OF DISTRESS. SAFETY PRECAUTIONS IN PLACE. WILL CONTINUE TO MONITOR.
[2018-09-03 04:53] VITALS: BP 123/90
--- NOTE | 2018-09-03 05:30 | NUR ---
PT RESTING IN BED PORT FLUSHED, BLOOD DRAWN AND FLUSHED PER PROTOCAL, PT TOLERATED WELL, IV FLUIDS INFUSING. SAFETY PRECAUTIONS IN PLACE WILL CONTINUE TO MONITOR.
[2018-09-03 06:22] LABS: HEMOGLOBIN 11.1 g/dl (12.0-16.0); IMMATURE GRANULOCYTES 0.5 % (0.0-5.0); MEAN CELL VOLUME 87.5 fL CALC (80.0-100.0); MEAN CORPUSCULAR HGB 29.4 pG CALC (26.0-32.0); MEAN CORPUSCULAR HGB CONC 33.6 g/L CALC (32.0-36.0); NEUT# 2.66 thou/uL (2.00-7.15); RED BLOOD COUNT 3.77 mill/uL (4.20-5.60); RED CELL DISTRI WIDTH 12.7 % (11.5-15.5)
[2018-09-03 06:34] LABS: ANION GAP 10 (6-22 (CALC)); BUN 6 mg/dL (7-17); BUN/CREATININE RATIO 6 (12-20 (CALC)); CARBON DIOXIDE 25 mmol/l (22-30); CHLORIDE 109 mmol/l (95-108); CREATININE 0.9 mg/dL (0.5-1.0); GFR > 60 ML/MIN (>=60 (CALC)); GFR FOR AFR.AMER. > 60 ML/MIN (>=60 (CALC)); POTASSIUM 3.3 mmol/l (3.5-5.1); SODIUM 141 mmol/l (137-146)
[2018-09-03 07:50] VITALS: BP 130/86
--- NOTE | 2018-09-03 08:30 | NUR ---
ASSESSMENT DONE . RESPS EVEN AND UNLABORED. IVF INFUSING WELL. PT STATED FEELING BETTER TODAY. PT DENIES ANY NEEDS AT THIS TIME. CALL LIGHT IN REACH.
--- NOTE | 2018-09-03 12:00 | NUR ---
Discharge instructions given. Patient verbalizes understanding of same. Discharged in stable condition via Ambulatory to Home . All belongings sent with pt.
== END 2018-09-03 12:00 | disposition home or self-care (01) | DRG 440 ==
LOC: ED 20:15 → ED-I 21:56 → ED 22:15 → MS2 22:16
PROVIDERS: Emergency Medicine; ADMIT Internal Medicine Geriatric Medicine; ATTEND Internal Medicine Geriatric Medicine
DX: K85.90 Acute pancreatitis without necrosis or infection, unspecified (principal); F32.9 Major depressive disorder, single episode, unspecified; F41.9 Anxiety disorder, unspecified; Z93.2 Ileostomy status; Z90.49 Acquired absence of other specified parts of digestive tract; Z87.19 Personal history of other diseases of the digestive system
CPT/HCPCS: G0378

== ENCOUNTER 2019-01-10 18:12 | Observation (INO) | payer BC, OTHER ==
[~2019-01-10] VITALS: Ht 172.7 cm; Wt 100.0 kg
[~2019-01-10 18:12] MED LIST changes: +CALCI23 PO
[2019-01-10] MEDS ORDERED: PERCOCET1 TA4 PO (18:36)
[2019-01-10 18:56] LABS: URINE BILIRUBIN - DIPSTICK NEGATIVE (NEGATIVE); URINE BLOOD DIPSTICK SMALL (NEGATIVE); URINE COLOR AMBER; URINE GLUCOSE - DIPSTICK NEGATIVE (NEGATIVE); URINE KETONE TRACE mg/dL (NEGATIVE); URINE LEUK ESTERASE SMALL (NEGATIVE); URINE NITRITE - DIPSTICK POSITIVE (Negative); URINE PROTEIN - DIPSTICK 100 mg/dL (NEG-TRACE); URINE SPECIFIC GRAVITY 1.025; URINE UROBILINOGEN - DIPSTICK 0.2 E.U./dL (0.2)
[2019-01-10 19:02] LABS: URINE BACTERIA MODERATE hpf; URINE SQUAMOUS EPITHELIAL CELL FEW EPI/hpf (0-FEW); URINE WBC >100 WBC/hpf (0-5)
[2019-01-10 19:51] LABS: HEMATOCRIT 34.2 % (37.0-47.0); HEMOGLOBIN 10.5 g/dl (12.0-16.0); IMMATURE GRANULOCYTES 2.4 % (0.0-5.0); MEAN CELL VOLUME 87.9 fL CALC (80.0-100.0); MEAN CORPUSCULAR HGB CONC 30.7 g/L CALC (32.0-36.0); NEUT# 9.66 thou/uL (2.00-7.15); RED BLOOD COUNT 3.89 mill/uL (4.20-5.60); RED CELL DISTRI WIDTH 15.2 % (11.5-15.5)
[2019-01-10 20:01] LABS: ALBUMIN 3.4 g/dL (3.2-5.0); ALKALINE PHOSPHATASE 153 u/l (38-126); AMYLASE 111 u/l (30-110); BILIRUBIN, TOTAL 0.7 mg/dL (0.0-1.4); BUN 11 mg/dL (7-17); BUN/CREATININE RATIO 13 (12-20 (CALC)); CREATININE 0.9 mg/dL (0.5-1.0); GFR > 60 ML/MIN (>=60 (CALC)); GFR FOR AFR.AMER. > 60 ML/MIN (>=60 (CALC)); LIPASE 375 u/l (23-300); POTASSIUM 3.2 mmol/l (3.5-5.1); SGOT/AST 28 u/l (14-36)
[2019-01-10 20:05] LABS: ANION GAP 12 (6-22 (CALC)); CARBON DIOXIDE 34 mmol/l (22-30); CHLORIDE 89 mmol/l (95-108); SODIUM 132 mmol/l (137-146); TOTAL PROTEIN 8.3 g/dL (6.3-8.2)
[2019-01-10 20:13] LABS: MYOGLOBIN 26 ng/mL (0 - 62)
[2019-01-10 20:14] LABS: D-DIMER 8.17 mg/L (0.19-0.60); INTERNATIONAL NORMALIZED RATIO 1.1 RATIO (0.7-1.3); PROTHROMBIN TIME 11.5 SECONDS (9.0-12.5)
[2019-01-10 22:35] VITALS: BP 133/75
[2019-01-11 04:22] VITALS: BP 116/75
[2019-01-11 06:23] LABS: HEMATOCRIT 32.5 % (37.0-47.0); HEMOGLOBIN 9.9 g/dl (12.0-16.0); IMMATURE GRANULOCYTES 1.9 % (0.0-5.0); MEAN CELL VOLUME 87.6 fL CALC (80.0-100.0); MEAN CORPUSCULAR HGB 26.7 pG CALC (26.0-32.0); MEAN CORPUSCULAR HGB CONC 30.5 g/L CALC (32.0-36.0); NEUT# 9.48 thou/uL (2.00-7.15); RED BLOOD COUNT 3.71 mill/uL (4.20-5.60); RED CELL DISTRI WIDTH 15.3 % (11.5-15.5)
[2019-01-11 06:33] LABS: ALBUMIN 2.9 g/dL (3.2-5.0); ALKALINE PHOSPHATASE 133 u/l (38-126); ANION GAP 11 (6-22 (CALC)); BILIRUBIN, TOTAL 0.6 mg/dL (0.0-1.4); BUN 10 mg/dL (7-17); BUN/CREATININE RATIO 13 (12-20 (CALC)); CARBON DIOXIDE 33 mmol/l (22-30); CHLORIDE 92 mmol/l (95-108); CREATININE 0.8 mg/dL (0.5-1.0); GFR > 60 ML/MIN (>=60 (CALC)); GFR FOR AFR.AMER. > 60 ML/MIN (>=60 (CALC)); POTASSIUM 3.7 mmol/l (3.5-5.1); SGOT/AST 25 u/l (14-36); SODIUM 133 mmol/l (137-146); TOTAL PROTEIN 7.2 g/dL (6.3-8.2)
[2019-01-11 09:11] VITALS: BP 103/74
[2019-01-11 11:13] VITALS: BP 107/65
[2019-01-11 16:37] VITALS: BP 114/63
[2019-01-11 19:14] VITALS: BP 111/63
[2019-01-12] VITALS (10 sets, daily range): BP systolic 103–132; BP diastolic 67–81
[2019-01-12 06:00] LABS: HEMATOCRIT 28.7 % (37.0-47.0); HEMOGLOBIN 8.9 g/dl (12.0-16.0); IMMATURE GRANULOCYTES 3.2 % (0.0-5.0); MEAN CELL VOLUME 87.2 fL CALC (80.0-100.0); MEAN CORPUSCULAR HGB 27.1 pG CALC (26.0-32.0); NEUT# 8.39 thou/uL (2.00-7.15); RED BLOOD COUNT 3.29 mill/uL (4.20-5.60); RED CELL DISTRI WIDTH 15.2 % (11.5-15.5)
[2019-01-12 06:15] LABS: ALBUMIN 2.6 g/dL (3.2-5.0); ALKALINE PHOSPHATASE 124 u/l (38-126); ANION GAP 11 (6-22 (CALC)); BILIRUBIN, TOTAL 0.4 mg/dL (0.0-1.4); BUN 6 mg/dL (7-17); BUN/CREATININE RATIO 7 (12-20 (CALC)); CARBON DIOXIDE 31 mmol/l (22-30); CHLORIDE 96 mmol/l (95-108); CREATININE 0.8 mg/dL (0.5-1.0); GFR > 60 ML/MIN (>=60 (CALC)); GFR FOR AFR.AMER. > 60 ML/MIN (>=60 (CALC)); POTASSIUM 3.5 mmol/l (3.5-5.1); SGOT/AST 17 u/l (14-36); SODIUM 134 mmol/l (137-146); TOTAL PROTEIN 6.5 g/dL (6.3-8.2)
[2019-01-13] VITALS (7 sets, daily range): BP systolic 101–117; BP diastolic 68–74
[2019-01-13 05:45] LABS: HEMATOCRIT 34.5 % (37.0-47.0); IMMATURE GRANULOCYTES 3.2 % (0.0-5.0); MEAN CELL VOLUME 85.8 fL CALC (80.0-100.0); MEAN CORPUSCULAR HGB 27.1 pG CALC (26.0-32.0); MEAN CORPUSCULAR HGB CONC 31.6 g/L CALC (32.0-36.0); NEUT# 7.07 thou/uL (2.00-7.15); RED BLOOD COUNT 4.02 mill/uL (4.20-5.60); RED CELL DISTRI WIDTH 15.4 % (11.5-15.5)
[2019-01-13 05:59] LABS: HEMOGLOBIN 10.9 g/dl (12.0-16.0)
[2019-01-13 06:10] LABS: ALBUMIN 2.6 g/dL (3.2-5.0); ALKALINE PHOSPHATASE 126 u/l (38-126); ANION GAP 11 (6-22 (CALC)); BUN 6 mg/dL (7-17); BUN/CREATININE RATIO 8 (12-20 (CALC)); CARBON DIOXIDE 30 mmol/l (22-30); CHLORIDE 98 mmol/l (95-108); CREATININE 0.7 mg/dL (0.5-1.0); GFR > 60 ML/MIN (>=60 (CALC)); GFR FOR AFR.AMER. > 60 ML/MIN (>=60 (CALC)); POTASSIUM 3.2 mmol/l (3.5-5.1); SGOT/AST 18 u/l (14-36); SODIUM 136 mmol/l (137-146); TOTAL PROTEIN 6.5 g/dL (6.3-8.2)
[2019-01-13 06:47] LABS: BILIRUBIN, TOTAL 0.7 mg/dL (0.0-1.4)
[2019-01-14 03:13] VITALS: BP 113/76
[2019-01-14 06:11] LABS: HEMATOCRIT 34.3 % (37.0-47.0); HEMOGLOBIN 10.7 g/dl (12.0-16.0); IMMATURE GRANULOCYTES 1.8 % (0.0-5.0); MEAN CELL VOLUME 86.4 fL CALC (80.0-100.0); MEAN CORPUSCULAR HGB CONC 31.2 g/L CALC (32.0-36.0); NEUT# 8.63 thou/uL (2.00-7.15); RED BLOOD COUNT 3.97 mill/uL (4.20-5.60); RED CELL DISTRI WIDTH 15.2 % (11.5-15.5)
[2019-01-14 06:19] LABS: ALBUMIN 2.6 g/dL (3.2-5.0); ALKALINE PHOSPHATASE 120 u/l (38-126); ANION GAP 10 (6-22 (CALC)); BILIRUBIN, TOTAL 0.5 mg/dL (0.0-1.4); BUN 7 mg/dL (7-17); BUN/CREATININE RATIO 9 (12-20 (CALC)); CARBON DIOXIDE 29 mmol/l (22-30); CHLORIDE 99 mmol/l (95-108); CREATININE 0.8 mg/dL (0.5-1.0); GFR > 60 ML/MIN (>=60 (CALC)); GFR FOR AFR.AMER. > 60 ML/MIN (>=60 (CALC)); POTASSIUM 3.6 mmol/l (3.5-5.1); SGOT/AST 17 u/l (14-36); SODIUM 134 mmol/l (137-146); TOTAL PROTEIN 6.3 g/dL (6.3-8.2)
[2019-01-14 08:55] VITALS: BP 118/78
[2019-01-14 14:50] VITALS: BP 104/79
[2019-01-14 19:00] VITALS: BP 122/70
[2019-01-15 03:57] LABS: HEMATOCRIT 36.5 % (37.0-47.0); HEMOGLOBIN 11.4 g/dl (12.0-16.0); IMMATURE GRANULOCYTES 1.8 % (0.0-5.0); MEAN CELL VOLUME 86.9 fL CALC (80.0-100.0); MEAN CORPUSCULAR HGB 27.1 pG CALC (26.0-32.0); MEAN CORPUSCULAR HGB CONC 31.2 g/L CALC (32.0-36.0); NEUT# 7.65 thou/uL (2.00-7.15); RED BLOOD COUNT 4.2 mill/uL (4.20-5.60); RED CELL DISTRI WIDTH 15.2 % (11.5-15.5)
[2019-01-15 04:04] LABS: ALBUMIN 2.8 g/dL (3.2-5.0); ALKALINE PHOSPHATASE 134 u/l (38-126); ANION GAP 12 (6-22 (CALC)); BILIRUBIN, TOTAL 0.6 mg/dL (0.0-1.4); BUN 12 mg/dL (7-17); BUN/CREATININE RATIO 15 (12-20 (CALC)); CARBON DIOXIDE 26 mmol/l (22-30); CHLORIDE 103 mmol/l (95-108); CREATININE 0.8 mg/dL (0.5-1.0); GFR > 60 ML/MIN (>=60 (CALC)); GFR FOR AFR.AMER. > 60 ML/MIN (>=60 (CALC)); POTASSIUM 4.2 mmol/l (3.5-5.1); SGOT/AST 27 u/l (14-36); SODIUM 136 mmol/l (137-146); TOTAL PROTEIN 6.8 g/dL (6.3-8.2)
[2019-01-15 04:28] VITALS: BP 140/78
[2019-01-15 08:08] VITALS: BP 112/72
[2019-01-15 15:05] VITALS: BP 121/75
[2019-01-15 19:18] VITALS: BP 118/78
[2019-01-16 03:02] VITALS: BP 132/86
[2019-01-16 03:35] LABS: HEMATOCRIT 37.7 % (37.0-47.0); HEMOGLOBIN 11.8 g/dl (12.0-16.0); IMMATURE GRANULOCYTES 1.9 % (0.0-5.0); MEAN CELL VOLUME 86.3 fL CALC (80.0-100.0); MEAN CORPUSCULAR HGB CONC 31.3 g/L CALC (32.0-36.0); NEUT# 6.89 thou/uL (2.00-7.15); RED BLOOD COUNT 4.37 mill/uL (4.20-5.60)
[2019-01-16 03:45] LABS: AMYLASE 123 u/l (30-110); ANION GAP 13 (6-22 (CALC)); BUN 17 mg/dL (7-17); BUN/CREATININE RATIO 18 (12-20 (CALC)); CARBON DIOXIDE 24 mmol/l (22-30); CHLORIDE 102 mmol/l (95-108); CREATININE 0.9 mg/dL (0.5-1.0); GFR > 60 ML/MIN (>=60 (CALC)); GFR FOR AFR.AMER. > 60 ML/MIN (>=60 (CALC)); LIPASE 744 u/l (23-300); POTASSIUM 4.1 mmol/l (3.5-5.1); SODIUM 135 mmol/l (137-146)
[2019-01-16 07:55] VITALS: BP 117/74
[2019-01-16] MEDS ORDERED: LEVAQUIN750 MG PO (14:13)
== END 2019-01-16 15:18 | disposition home or self-care (01) | DRG 439 ==
LOC: ED 18:12 → ED-I 21:24 → ED 21:29 → MS2 21:30
PROVIDERS: Family Medicine; ADMIT Internal Medicine Geriatric Medicine; ATTEND Internal Medicine Geriatric Medicine
PROC: 30233N1 Transfusion of Nonautologous Red Blood Cells into Peripheral Vein, Percutaneous Approach (ICD-10-PCS; principal; 2019-01-12)
PROC: 30233N1 Transfusion of Nonautologous Red Blood Cells into Peripheral Vein, Percutaneous Approach (ICD-10-PCS; 2019-01-13)
DX: K85.90 Acute pancreatitis without necrosis or infection, unspecified (principal); J90 Pleural effusion, not elsewhere classified; N39.0 Urinary tract infection, site not specified; R91.8 Other nonspecific abnormal finding of lung field; E87.6 Hypokalemia; D64.9 Anemia, unspecified; E86.0 Dehydration; K86.1 Other chronic pancreatitis; F41.9 Anxiety disorder, unspecified; K29.70 Gastritis, unspecified, without bleeding; K27.9 Peptic ulcer, site unspecified, unspecified as acute or chronic, without hemorrhage or perforation; F32.9 Major depressive disorder, single episode, unspecified; B96.89 Other specified bacterial agents as the cause of diseases classified elsewhere; Z97.8 Presence of other specified devices; Z93.2 Ileostomy status; Z92.3 Personal history of irradiation; Z93.6 Other artificial openings of urinary tract status; Z86.010 Personal history of colon polyps; Z92.21 Personal history of antineoplastic chemotherapy
CPT/HCPCS: G0378; J2060; P9016; Q9967

== ENCOUNTER 2019-01-31 12:02 | Observation (INO) | payer BC, OTHER ==
[~2019-01-31] VITALS: Ht 172.7 cm; Wt 78.0 kg
[~2019-01-31 12:02] MED LIST changes: +LEVAQUIN750 MG PO
[2019-01-31 12:50] VITALS: BP 110/63
[2019-01-31 13:20] LABS: URINE BLOOD DIPSTICK NEGATIVE (NEGATIVE); URINE COLOR YELLOW; URINE GLUCOSE - DIPSTICK NEGATIVE (NEGATIVE); URINE KETONE NEGATIVE (NEGATIVE); URINE LEUK ESTERASE TRACE (Negative); URINE NITRITE - DIPSTICK NEGATIVE (Negative); URINE PH 5.5 (4.5-8.0); URINE PROTEIN - DIPSTICK 30 mg/dL (NEG-TRACE); URINE UROBILINOGEN - DIPSTICK 0.2 E.U./dL (0.2)
[2019-01-31 13:20] LABS: HEMATOCRIT 32.4 % (37.0-47.0); HEMOGLOBIN 10.6 g/dl (12.0-16.0); MEAN CELL VOLUME 81.8 fL CALC (80.0-100.0); MEAN CORPUSCULAR HGB 26.8 pG CALC (26.0-32.0); MEAN CORPUSCULAR HGB CONC 32.7 g/L CALC (32.0-36.0); RED BLOOD COUNT 3.96 mill/uL (4.20-5.60); RED CELL DISTRI WIDTH 14.6 % (11.5-15.5)
[2019-01-31 13:22] LABS: URINE BILIRUBIN - DIPSTICK SMALL (NEGATIVE)
[2019-01-31 13:23] LABS: URINE CLARITY SL CLOUDY; URINE EPITHELIAL CELLS MODERATE EPI/hpf (0-FEW); URINE WBC 0-2 WBC/hpf (0-5)
[2019-01-31 13:44] LABS: ALBUMIN 3.6 g/dL (3.2-5.0); BILIRUBIN, TOTAL 0.6 mg/dL (0.0-1.4); CREATININE 1.4 mg/dL (0.5-1.0); POTASSIUM 3.5 mmol/l (3.5-5.1); TOTAL PROTEIN 7.9 g/dL (6.3-8.2)
[2019-01-31 14:35] VITALS: BP 99/72
--- NOTE | 2019-01-31 14:52 | NUR ---
PT HAD COME A DIRECT ADMIT VIA WHEEELCHAIR. ASSESSMENT DONE. PT IS A&O X3. RESPS EVEN AND UNLABORED. PT IS A&O X3. NS 100ML/HR INFUSING WELL. ILEOSTOMY IN PLACE. PO FLUIDS PROVIDED. SAFETY PRECAUTIONS REINFORCED AND CALL LIGHT .
[2019-01-31] MEDS ORDERED: FENTANYL50 MCG/HR TD (15:07)
[2019-01-31] MEDS ORDERED: LORAZEPAM0.5 MG PO (15:08)
[2019-01-31] MEDS ORDERED: PROBIOTI2 (16:33)
[2019-01-31 19:10] VITALS: BP 102/68
--- NOTE | 2019-01-31 19:10 | NUR ---
REPORT FROM DANI. PT SITTING UP IN BED ATTEMPTING TO EAT SOUP. PT C/O NAUSEA, WILL MEDICATE WHEN TIME. DISCUSSED POC. PT VERBALIZED UNDERSTANDING. RIGHT UPPER PORT ACCESS APPEARS HEALTHY. IV FLUIDS INFUSING WITHOUT DIFFICULTY. ENCOURAGED PT TO CALL WITH NEEDS OR ASSISTANCE. CALL LIGHT WITHIN REACH. WILL CONTINUE TO MONITOR.
--- NOTE | 2019-01-31 19:39 | NUR ---
PT MEDICATED FOR NAUSEA AT THIS TIME. PT DOWN TO CT IN STABLE CONDITION.
--- NOTE | 2019-01-31 21:39 | NUR ---
PT MEDICATED FOR GENERALIZED PAIN 7-10. PT DENIES ANY OTHER WANTS OR NEEDS AT THIS TIME. CALL LIGHT WITHIN REACH. WILL CONTINUE TO MONITOR.
--- NOTE | 2019-01-31 22:52 | NUR ---
SLEEPING PILL PROVIDED UPON REQUEST. NO DISTRESS NOTED. CALL LIGHT WITHIN REACH. WILL CONTINUE TO MONITOR.
--- NOTE | 2019-02-01 02:10 | NUR ---
PT MEDICATED FOR PAIN AND NAUSEA. CALL LIGHT WITHIN REACH. WILL CONTINUE TO MONITOR.
[2019-02-01 03:25] VITALS: BP 106/56
[2019-02-01 08:00] VITALS: BP 110/71
--- NOTE | 2019-02-01 08:00 | NUR ---
PT IS ALERT AND ORIENTED X 3. PT DOES COMPLAINT ABOUT GENERALIZED ABDOMINAL PAIN AND REQUESTS PAIN AND NAUSEA MEDICINE WHEN THEY ARE AVAILABLE. ILEOSTOMY OUTPUT HAS BEEN WATERY.
--- NOTE | 2019-02-01 12:00 | NUR ---
PT SEEN BY DR TOWNSEND THIS MORNING, ENCOURAGED TO BETTER CONTROL HER SITUATION WITH POSITIVE THOUGHTS. PT REMAINS BEFORE, STATES HER ABDOMINAL PAIN IS USUALLY A 7/10.
[2019-02-01 14:39] VITALS: BP 105/72
--- NOTE | 2019-02-01 17:09 | NUR ---
PT ASKS FOR PAIN MEDICINE IT BECOMES AVAILABLE. NO DISTRESS, NO COMPLAINTS.
[2019-02-01 19:28] VITALS: BP 107/71
--- NOTE | 2019-02-01 19:42 | NUR ---
ASKED DR. TOWNSEND IF HE WANTED TO ORDER FENTANYL PATCH TO FOR PT. SHE HAS HERS ON FROM HOME DATED 01/30/19 AND IT WILL NEED TO BE CHANGED TOMORROW. PER MD HE WILL ASSESS THIS TOMORROW UPON ROUNDS.
--- NOTE | 2019-02-01 19:58 | NUR ---
ASSESSMENT COMPLETED. C/O ABD PAIN 12/19 AND MEDICATED WITH ORDERED DILAUDID. WILL REASSESS. ILLEOSTOMY INTACT TO LLQ. PT. DENIES ANY FURTHER NEEDS. CALL LIGHT IS IN REACH. WILL CONTINUE TO MONITOR.
--- NOTE | 2019-02-01 22:18 | NUR ---
PT. REQUESTS SOMETHING TO HELP HER SLEEP, MEDICATED WITH ORDERED PRN RESTORIL. DENIES FURTHER NEEDS. CALL LIGHT IS IN REACH.
--- NOTE | 2019-02-02 01:47 | NUR ---
PT. REPORTS ABD PAIN 12/19 AND MEDICATED WITH ORDERED DILAUDID PER ORDER. PT. ASKING THIS HAMMERER WHEN NEXT PHENERGAN DOSE CAN BE GIVEN AND NOTIFIED OF NEXT TIME AVAILABLE. WARM PACK PROVIDED PER PTS REQUEST. ENCOURAGED TO CALL FOR ANY NEEDS. CALL LIGHT IS IN REACH.
[2019-02-02 04:40] VITALS: BP 96/64
--- NOTE | 2019-02-02 04:47 | NUR ---
AM LABS OBTAINED VIA PORT AND FLUSHED PER PROTOCAL. VSS. C/O NAUSEA AND MEDICATED WITH ORDERED PRN PHENERGAN. ENCOURAGED TO CALL FOR ANY NEEDS. CALL LIGHT IS IN REACH.
[2019-02-02 05:24] LABS: HEMATOCRIT 27.9 % (37.0-47.0); HEMOGLOBIN 8.9 g/dl (12.0-16.0); IMMATURE GRANULOCYTES 2.2 % (0.0-5.0); MEAN CELL VOLUME 84.3 fL CALC (80.0-100.0); MEAN CORPUSCULAR HGB 26.9 pG CALC (26.0-32.0); MEAN CORPUSCULAR HGB CONC 31.9 g/L CALC (32.0-36.0); NEUT# 4.44 thou/uL (2.00-7.15); RED BLOOD COUNT 3.31 mill/uL (4.20-5.60); RED CELL DISTRI WIDTH 14.4 % (11.5-15.5)
[2019-02-02 05:33] LABS: ALKALINE PHOSPHATASE 145 u/l (38-126); AMYLASE 88 u/l (30-110); ANION GAP 11 (6-22 (CALC)); BILIRUBIN, TOTAL 0.4 mg/dL (0.0-1.4); BUN 11 mg/dL (7-17); BUN/CREATININE RATIO 14 (12-20 (CALC)); CARBON DIOXIDE 22 mmol/l (22-30); CHLORIDE 106 mmol/l (95-108); CREATININE 0.8 mg/dL (0.5-1.0); GFR > 60 ML/MIN (>=60 (CALC)); GFR FOR AFR.AMER. > 60 ML/MIN (>=60 (CALC)); LIPASE 597 u/l (23-300); POTASSIUM 3.4 mmol/l (3.5-5.1); SGOT/AST 25 u/l (14-36); SODIUM 135 mmol/l (137-146); TOTAL PROTEIN 6.4 g/dL (6.3-8.2)
[2019-02-02 05:43] LABS: ALBUMIN 2.8 g/dL (3.2-5.0)
--- NOTE | 2019-02-02 06:43 | NUR ---
PT. C/O ABD PAIN 11/19 AND MEDICATED WITH ORDERED PRN DILAUDID. ALSO MEDICATED WITH ONE TIME DOSE OF POTASSIUM. DENIES FURTHER NEEDS. CALL LIGHT IS IN REACH.
--- NOTE | 2019-02-02 08:10 | NUR ---
PT RESTING IN BED WATCHING TV, NO SIGNS OF DISTRESS NOTED, RESP EVEN AND UNLABORED. PT STATES SHE FEELS SOMEWHAT BETTER BUT STILL HAS PAIN. PT HAS A FENTANYL PATCH TO RLE, DISCUSSED POC CARE PT REQUESTING TO KNOW WHEN NEXT PAIN MEDICATION AND PHENERGHAN IS DUE. PT HAS ILEOSTOMY TO LLQ, SURGICAL WOUNDS HEALING TO L AND R SIDE RIBS FROM PREVIOUS CHEST TUBES. ASSESSMENT COMPLETED, CALL LIGHT IN REACH,CONTINUE TO MONITOR.
[2019-02-02 08:12] VITALS: BP 114/65
--- NOTE | 2019-02-02 08:30 | NUR ---
AT BEDSIDE TO DISCUSS PLANS FOR DISCHARGE, PT REQUESTING PAIN MEDICATION PRESCRIPTION, CONTINUE TO MONITOR.
[2019-02-02] MEDS ORDERED: PERCOCET 5/325M1 TAB PO (08:57)
--- NOTE | 2019-02-02 10:46 | NUR ---
PT C/O PAIN 12/19 MEDICATED WITH DILAUDID AND PT REQUESTING PHENERGHAN, BOTH GIVEN AT THIS TIME. PT STATES HER DAUGHTER WHO WILL BE HER TRANSPORTATION HOME WILL BE HERE AROUND 1130. NO SIGNS OF DISTRESS NOTED, CALL LIGHT IN REACH,CONTINUE TO MONITOR.
--- NOTE | 2019-02-02 11:28 | NUR ---
DISCUSSED DISCHARGE INFORMATION, PRESCRIPTION GIVEN, RN TO DEACCESS PORT
--- NOTE | 2019-02-02 11:39 | NUR ---
MARÍA DEACCESSED BY
--- NOTE | 2019-02-02 12:00 | NUR ---
Discharge instructions given. Patient verbalizes understanding of same. Discharged in stable condition via Wheelchair to Home with family. All belongings sent with pt.
== END 2019-02-02 12:00 | disposition home or self-care (01) | DRG 641 ==
LOC: MS2 12:02
PROVIDERS: ADMIT Internal Medicine Geriatric Medicine; ATTEND Internal Medicine Geriatric Medicine
DX: E86.0 Dehydration (principal); J90 Pleural effusion, not elsewhere classified; E87.6 Hypokalemia; D64.9 Anemia, unspecified; F41.8 Other specified anxiety disorders; Z90.49 Acquired absence of other specified parts of digestive tract; Z93.2 Ileostomy status; Z86.010 Personal history of colon polyps
CPT/HCPCS: G0378; G0379; S0164

== ENCOUNTER 2019-03-15 12:54 | Emergency (ER) | payer BC, OTHER ==
[~2019-03-15] VITALS: Ht 172.7 cm; Wt 75.0 kg
[~2019-03-15 12:54] MED LIST changes: +FENTANYL50 MCG/HR TD; +LORAZEPAM0.5 MG PO; +PROBIOTI2
[2019-03-15] MEDS ORDERED: TYLENOL325 M2 PO (13:13)
[2019-03-15 13:51] LABS: HEMATOCRIT 32.2 % (37.0-47.0); HEMOGLOBIN 10.2 g/dl (12.0-16.0); IMMATURE GRANULOCYTES 0.5 % (0.0-5.0); MEAN CELL VOLUME 84.1 fL CALC (80.0-100.0); MEAN CORPUSCULAR HGB 26.6 pG CALC (26.0-32.0); MEAN CORPUSCULAR HGB CONC 31.7 g/L CALC (32.0-36.0); NEUT# 5.71 thou/uL (2.00-7.15); RED BLOOD COUNT 3.83 mill/uL (4.20-5.60); RED CELL DISTRI WIDTH 15.4 % (11.5-15.5)
[2019-03-15 13:58] LABS: URINE BLOOD DIPSTICK NEGATIVE (NEGATIVE); URINE COLOR YELLOW; URINE GLUCOSE - DIPSTICK NEGATIVE (NEGATIVE); URINE KETONE TRACE mg/dL (NEGATIVE); URINE LEUK ESTERASE NEGATIVE (NEGATIVE); URINE NITRITE - DIPSTICK NEGATIVE (Negative); URINE PROTEIN - DIPSTICK 30 mg/dL (NEG-TRACE); URINE SPECIFIC GRAVITY 1.025; URINE UROBILINOGEN - DIPSTICK 0.2 E.U./dL (0.2)
[2019-03-15 13:59] LABS: URINE BILIRUBIN - DIPSTICK SMALL (NEGATIVE)
[2019-03-15 14:00] LABS: URINE EPITHELIAL CELLS FEW EPI/hpf (0-FEW); URINE MUCUS FEW hpf (NONE-FEW)
[2019-03-15 14:13] LABS: ALKALINE PHOSPHATASE 210 u/l (38-126); BUN 18 mg/dL (7-17); BUN/CREATININE RATIO 17 (12-20 (CALC)); CHLORIDE 96 mmol/l (95-108); CREATININE 1.1 mg/dL (0.5-1.0); GFR 56 ML/MIN (>=60 (CALC)); GFR FOR AFR.AMER. > 60 ML/MIN (>=60 (CALC)); POTASSIUM 3.5 mmol/l (3.5-5.1); SGOT/AST 29 u/l (14-36); SODIUM 136 mmol/l (137-146)
[2019-03-15 14:25] LABS: ALBUMIN 4.1 g/dL (3.2-5.0); ANION GAP 15 (6-22 (CALC)); BILIRUBIN, TOTAL 0.6 mg/dL (0.0-1.4); CARBON DIOXIDE 29 mmol/l (22-30); TOTAL PROTEIN 8.7 g/dL (6.3-8.2)
[2019-03-15] MEDS ORDERED: ULTRAM50 MG PO (14:56)
[2019-03-15 15:10] VITALS: BP 116/76
== END 2019-03-15 15:30 | disposition home or self-care (01) | DRG 204 ==
LOC: ED 12:54
DX: R06.4 Hyperventilation (principal); F41.9 Anxiety disorder, unspecified; Z98.890 Other specified postprocedural states

== ENCOUNTER 2019-04-07 15:38 | Emergency (ER) | payer BC, OTHER ==
[~2019-04-07] VITALS: Ht 172.7 cm; Wt 70.0 kg
[~2019-04-07 15:38] MED LIST changes: +TYLENOL325 M2 PO
[2019-04-07] MEDS ORDERED: ADVIL200 MG PO (16:11)
[2019-04-07 16:12] LABS: HEMATOCRIT 45.1 % (37.0-47.0); HEMOGLOBIN 15.2 g/dl (12.0-16.0); IMMATURE GRANULOCYTES 0.2 % (0.0-5.0); MEAN CORPUSCULAR HGB 27.3 pG CALC (26.0-32.0); MEAN CORPUSCULAR HGB CONC 33.7 g/L CALC (32.0-36.0); NEUT# 9.85 thou/uL (2.00-7.15); RED BLOOD COUNT 5.57 mill/uL (4.20-5.60); RED CELL DISTRI WIDTH 15.2 % (11.5-15.5)
[2019-04-07 16:29] LABS: POTASSIUM 3.7 mmol/l (3.5-5.1)
[2019-04-07 16:36] LABS: ALBUMIN 5.5 g/dL (3.2-5.0); BILIRUBIN, TOTAL 1.3 mg/dL (0.0-1.4); CREATININE 1.9 mg/dL (0.5-1.0)
[2019-04-07 19:50] LABS: CREATININE 1.4 mg/dL (0.5-1.0)
[2019-04-07 21:12] VITALS: BP 114/71
== END 2019-04-07 21:35 | disposition home or self-care (01) | DRG 392 ==
LOC: ED 15:38
DX: R11.2 Nausea with vomiting, unspecified (principal); Z90.49 Acquired absence of other specified parts of digestive tract; Z85.038 Personal history of other malignant neoplasm of large intestine; Z93.2 Ileostomy status; R10.13 Epigastric pain

== ENCOUNTER 2021-02-13 23:56 | Emergency (ER) | payer BC ==
[~2021-02-13] VITALS: Ht 172.7 cm; Wt 93.0 kg
[~2021-02-13 23:56] MED LIST changes: +ADVIL200 MG PO
[2021-02-14 01:16] LABS: HEMATOCRIT 38.1 % (37.0-47.0); HEMOGLOBIN 12.5 g/dl (12.0-16.0); IMMATURE GRANULOCYTES 0.5 % (0.0-5.0); MEAN CORPUSCULAR HGB 30.1 pG CALC (26.0-32.0); MEAN CORPUSCULAR HGB CONC 32.8 g/dL CAL (32.0-36.0); NEUT# 5.33 thou/uL (2.00-7.15); RED BLOOD COUNT 4.15 mill/uL (4.20-5.60); RED CELL DISTRI WIDTH 12.4 % (11.5-15.5); URINE BILIRUBIN - DIPSTICK NEGATIVE (NEGATIVE); URINE BLOOD DIPSTICK NEGATIVE (NEGATIVE); URINE COLOR YELLOW; URINE GLUCOSE - DIPSTICK NEGATIVE (NEGATIVE); URINE KETONE NEGATIVE (NEGATIVE); URINE PROTEIN - DIPSTICK NEGATIVE (NEG-TRACE); URINE SPECIFIC GRAVITY 1.025; URINE UROBILINOGEN - DIPSTICK 0.2 E.U./dL (0.2)
[2021-02-14 01:17] LABS: MEAN CELL VOLUME 91.8 fL CALC (80.0-100.0); URINE LEUK ESTERASE SMALL (NEGATIVE); URINE NITRITE - DIPSTICK NEGATIVE (Negative)
[2021-02-14 01:24] LABS: URINE SQUAMOUS EPITHELIAL CELL FEW EPI/hpf (0-FEW)
[2021-02-14] MEDS ORDERED: NURTEC75 MG (01:26)
[2021-02-14 01:28] LABS: CREATININE 1.3 mg/dL (0.5-1.0); POTASSIUM 3.8 mmol/l (3.5-5.1)
[2021-02-14 01:31] LABS: ALBUMIN 4.3 g/dL (3.2-5.0); BILIRUBIN, TOTAL 0.4 mg/dL (0.0-1.4); TOTAL PROTEIN 7.2 g/dL (6.3-8.2)
[2021-02-14] MEDS ORDERED: LORTAB 1010 MG PO (03:48)
[2021-02-14 04:24] VITALS: BP 120/65
== END 2021-02-14 04:34 | disposition home or self-care (01) | DRG 690 ==
LOC: ED 23:56
PROVIDERS: Emergency Medicine
DX: N39.0 Urinary tract infection, site not specified (principal); B96.20 Unspecified Escherichia coli [E. coli] as the cause of diseases classified elsewhere; Z93.3 Colostomy status; Z88.1 Allergy status to other antibiotic agents; Z85.038 Personal history of other malignant neoplasm of large intestine; Z92.21 Personal history of antineoplastic chemotherapy; Z92.3 Personal history of irradiation
CPT/HCPCS: S0073

== ENCOUNTER 2021-04-18 13:29 | Observation (INO) | payer BC ==
[~2021-04-18] VITALS: Ht 172.7 cm; Wt 82.0 kg
[~2021-04-18 13:29] MED LIST changes: +NURTEC75 MG
[2021-04-18] MEDS ORDERED: XANAX1 MG PO (13:53)
[2021-04-18] MEDS ORDERED: TRAMADOL HCL50 MG PO (13:53)
--- NOTE | 2021-04-18 13:56 | NUR ---
PT TO ROOM AMBLATORY, WAS ALSO IN HOSPITAL LAST WEEK FOR SAME COMPLAINT, WAS DISCHARGED ON MONDAY, BUT STARTED FEELING WEAK AND FATIQUED AGAIN MONDAY.
--- NOTE | 2021-04-18 14:56 | NUR ---
PATIENT LYING IN BED. WARM BLANKET OFFERED AND ACCEPTED. LIGHTS DIMMED.
[2021-04-18 15:07] LABS: HEMATOCRIT 40.4 % (37.0-47.0); HEMOGLOBIN 13.5 g/dl (12.0-16.0); IMMATURE GRANULOCYTES 0.2 % (0.0-5.0); MEAN CELL VOLUME 86.3 fL CALC (80.0-100.0); MEAN CORPUSCULAR HGB 28.8 pG CALC (26.0-32.0); MEAN CORPUSCULAR HGB CONC 33.4 g/dL CAL (32.0-36.0); NEUT# 3.28 thou/uL (2.00-7.15); RED BLOOD COUNT 4.68 mill/uL (4.20-5.60); RED CELL DISTRI WIDTH 12.8 % (11.5-15.5)
[2021-04-18 15:08] LABS: URINE BILIRUBIN - DIPSTICK NEGATIVE (NEGATIVE); URINE BLOOD DIPSTICK NEGATIVE (NEGATIVE); URINE COLOR YELLOW; URINE GLUCOSE - DIPSTICK NEGATIVE (NEGATIVE); URINE KETONE NEGATIVE (NEGATIVE); URINE LEUK ESTERASE TRACE (NEGATIVE); URINE PH 5.5 (4.5-8.0); URINE PROTEIN - DIPSTICK 30 mg/dL (NEG-TRACE); URINE SPECIFIC GRAVITY >=1.030; URINE UROBILINOGEN - DIPSTICK 0.2 E.U./dL (0.2)
[2021-04-18 15:13] LABS: URINE NITRITE - DIPSTICK NEGATIVE (Negative)
[2021-04-18 15:19] LABS: URINE AMORPH SEDIMENT MANY hpf (NONE-FEW); URINE SQUAMOUS EPITHELIAL CELL FEW EPI/hpf (0-FEW)
[2021-04-18 15:29] LABS: AMYLASE 171 u/l (30-110); ANION GAP 17 (6-22 (CALC)); CARBON DIOXIDE 31 mmol/l (22-30); CHLORIDE 92 mmol/l (95-108); CREATININE 1.8 mg/dL (0.5-1.0); GFR 31 ML/MIN (>=60 (CALC)); GFR FOR AFR.AMER. 38 ML/MIN (>=60 (CALC)); LIPASE 546 u/l (23-300); POTASSIUM 3.9 mmol/l (3.5-5.1); SODIUM 136 mmol/l (137-146)
[2021-04-18 15:32] LABS: ALKALINE PHOSPHATASE 231 u/l (38-126); BILIRUBIN, TOTAL 0.9 mg/dL (0.0-1.4); BUN 41 mg/dL (7-17); BUN/CREATININE RATIO 23 (12-20 (CALC)); MAGNESIUM 1.1 mg/dL (1.6-2.3); SGOT/AST 102 u/l (14-36); TOTAL PROTEIN 9.6 g/dL (6.3-8.2)
[2021-04-18 15:35] LABS: ACT PARTIAL THROMBO TIME 22.6 SECONDS (20.0-32.5); PROTHROMBIN TIME 10.2 SECONDS (9.0-12.5)
--- NOTE | 2021-04-18 15:56 | NUR ---
PATIENT LYING IN BED IN NO ACUTE DISTRESS.
--- NOTE | 2021-04-18 16:56 | NUR ---
PATIENT LYING IN BED IN NO ACUTE DISTRESS. VSS
--- NOTE | 2021-04-18 17:28 | NUR ---
PATIENT DECLINED NEEDS AT THIS TIME. VSS. NO ACUTE DISTRESS.
--- NOTE | 2021-04-18 18:21 | NUR ---
PT ARRIVED TO FLOOR VIA WHEELCHAIR. AMBULATORY FROM CHAIR. ALERT AND ORIENTED X4. NO APAPRENT DISTRESS NOTED. PT C/O UPPER ABD PAIN 10/19. DENIES ANY NAUSEA AT THIS TIME. RIGHT UPPER CHEST PORT ACCESSES IN ER WITH MAG INFUSING. PT ORIENTED TO ROOM AND CALL LIGHT SYSTEM.
--- NOTE | 2021-04-18 18:24 | NUR ---
PATIENT TRANSPORTED TO ROOM 261 VIA WHEELCHAIR IN NO ACUTE DISTRESS. REPORT PROVIDED TO LUCIEN.
[2021-04-18 19:00] VITALS: BP 120/81
--- NOTE | 2021-04-18 19:41 | NUR ---
PATIENT RESTING IN BED AT THIS TIME-AWAKE ALERT AND ORIENTEDX3 WITH C/O ABD PAIN-6/10 ON PAIN SCALE AND NAUSEA. MEDICATED WITH DILAUDID 1MG IVP ORDERED FOR PAIN AND WITH PHENERGAN 12.5MG IVP FOR NAUSEA. VIA RIGHT UPPER CHEST PORT. PORT IS HEALTHY WITH GOOD BLOOD RETURN. IVF NS HUNG AND INFUSING AT 150CC/HR VIA PORT SITE. PATIENT WITH RIGHT ABD OSTOMY WITH APPLIANCE INTACT. MID-LINE ABD INCISION IS HEALING WELL WITH NO S/S OF INFECTION OLD OSTOMY SITE IS ALSO HEALING WELL. INSTRUCTED REGUARDING CLEAR LIQUID DIET. CALL LIGHT IN REACH. WILL CONT TO MONITOR.
--- NOTE | 2021-04-18 21:00 | NUR ---
RECIEVED CALL FROM [facility] IN ER-STATES THAT PATIENT ST-150'S. PATIENT UP AND ABOUT IN ROOM. HR NOT SUSTAINED GOES BACK DOWN QUICKLY AFTER ACTIVITY. PATINET WITH NO COMPLAINTS OF CHEST PAIN, PALPATATIONS OR SOB. PATIENT DID STATES THAT AFTER HER RECENT SURGERY THAT HER HR WAS UP AND THAT WHEN SHE WENT HOME THEY GAVE HER A RX FO METOPROLOL BUT SHE HASN'T BEEN TAKING IT. PATIENT IS TAKING CARE OF HER OWN ILEOSTOMY-DRAINING LIQUID GREEN STOOL AT THIS TIME. APPLIANCE TO RIGHT ABD IS INTACT. ABD WITH RECENT MID-LINE ABD SCARHEALING WELL AND LEFT OLD OSTOMY SITE IS ALSO HEALING WELL. MEDICATED WITH LOVENOX ORDERED. TAKING PO LIQUIDS ORDERED-TOLERATING OK. CALL LIGHT IN REACH. WILL CONT TO MONITOR.
[2021-04-19 00:03] VITALS: BP 107/74
--- NOTE | 2021-04-19 02:00 | NUR ---
PATIENT RESTING IN BED AT THIS TIME. MEDICATED FOR ABD PAIN WITH DILAUDID 1MG IVP AND WITH PHENERGAN 12.5MG IVP FOR NAUSEA. IVF NS PATENT AN DINFUSING VIA RIGHT UPPER CHEST PORT AT 150CC/HR. REMAINS HEALTHY AT HTIS TIME. CALL LIGHT IN REACH. WILL CONT TO MONITOR
[2021-04-19 04:01] VITALS: BP 100/68
--- NOTE | 2021-04-19 04:27 | NUR ---
PATIENT RESTING IN BED AT THIS TIME-AWAKE ALERT WITH NO COMPLAINTS AT THIS TIME. LAB WORK DRAWN FROM RIGHT UPPER CHEST PORT-GOOD BLOOD RETURN-FLUSHED PER PROTOCOL. IVF NS INFUSING AT 150CC/HR ORDERED. TELE MONITOR IN PLACE-LAST READING WAS [id number]. CALL LIGHT IN REACH. WILL CONT TO MONITOR.
[2021-04-19 05:13] LABS: MEAN CELL VOLUME 86.7 fL CALC (80.0-100.0); MEAN CORPUSCULAR HGB 29.3 pG CALC (26.0-32.0); MEAN CORPUSCULAR HGB CONC 33.8 g/dL CAL (32.0-36.0); RED BLOOD COUNT 3.62 mill/uL (4.20-5.60)
[2021-04-19 05:20] LABS: HEMATOCRIT 31.4 % (37.0-47.0); HEMOGLOBIN 10.6 g/dl (12.0-16.0)
[2021-04-19 05:30] LABS: ALBUMIN 3.9 g/dL (3.2-5.0); BILIRUBIN, TOTAL 0.6 mg/dL (0.0-1.4); CREATININE 1.3 mg/dL (0.5-1.0); MAGNESIUM 1.8 mg/dL (1.6-2.3); POTASSIUM 3.4 mmol/l (3.5-5.1); TOTAL PROTEIN 7.1 g/dL (6.3-8.2)
[2021-04-19] MEDS ORDERED: LOPRESSOR 550 MG/TAB PO (07:20)
[2021-04-19] MEDS ORDERED: FAMOTIDINE20 M1 PO (07:20)
[2021-04-19] MEDS ORDERED: CARISOPRODOL350 MG PO (07:20)
[2021-04-19] MEDS ORDERED: MICRONIZED COLES1 GM PO (07:21)
[2021-04-19] MEDS ORDERED: FENOFIBRATE145 MG PO (07:22)
[2021-04-19 08:00] VITALS: BP 104/66
--- NOTE | 2021-04-19 08:00 | NUR ---
PT RESTING IN. DOES NOT REPORT ANY PAIN AT THIS TIME. NO N/V. PT IS A$O X3, S1 AND S2 HEARD UPON AUSCULATION. LUNG SOUNDS ARE CLEAR UPPER/ LOWER LOBES EQUALLY BILATERALLY. ABDOMEN IS SOFT, NON TENDER. BOWEL SOUNDS ARE ACTIVE X4. RADIAL AND PEDAL PULSE ARE STRONG EQUALLY BILATERALLY. PT HAS AN ILEOSTOMY ON THE RIGHT OF THE ABDOMEN. SKIN AROUND THE AREA IS CDI. TELE IS IN PLACE SHOWING SINUS RYTHMN. PT HAS AN UPPER CHEST ACCESS PORT INFUSING NS @ 50 ML/HR. CALL LIGHT IS WITHIN REACH.
[2021-04-19 10:20] LABS: CHOLESTEROL HDL RATIO 4.6 (<4.4 (CALC))
--- NOTE | 2021-04-19 10:28 | NUR ---
DR. BRENNAN AND JOSE F GILLILAND AT BEDSIDE DISCUSSING POC WITH PT.
--- NOTE | 2021-04-19 12:44 | NUR ---
PT ALERT SITTINNG IN BED EATING LUNCH. FULL LIQUID DIET ADVANCED TO SOFT DIET. PAIN MEDICATION WAS GIVEN TO PT WITH A PAIN LEVEL BEING AN 8. TELE IN PLACE SHOWING SINUS RYTHYMN. ACCESS PORT INFUSING NS WITH NO SIGN OF LEAKAGE. CALL LIGHT IS WITHIN REACH.
[2021-04-19] MEDS ORDERED: TRAMADOL HCL50 MG PO (14:23)
[2021-04-19 15:12] VITALS: BP 112/68
--- NOTE | 2021-04-19 19:19 | NUR ---
Discharge instructions given. PORT FLUSHED PER PROTOCAL PRIOR TO REMOVAL ATTEMPT MADE TO DRESS PORT SITE WITH OCCLUSSIVE DRESSING AND BIO PATCH. PT REFUSING DRESSING AT THIS TIME. Patient verbalizes understanding of same. Discharged in stable condition via Ambulatory to Home with family AND STAFF. All belongings sent with pt.
--- NOTE | 2021-04-21 09:48 | NUR ---
PRELIM BLOOD CX SHOWS GRAM POSITIVE COCCI IN 1/. REPORTED TO TALAT. NO NEW ORDERS. WILL F/U WITH FINAL. LIKELY CONTAMINANT.
== END 2021-04-19 16:10 | disposition home or self-care (01) | DRG 439 ==
LOC: ED 13:29 → ED-I 17:00 → ED 17:17 → MS2 17:18
PROVIDERS: Hospitalist; ADMIT Internal Medicine; ATTEND Internal Medicine
DX: K86.1 Other chronic pancreatitis (principal); N17.9 Acute kidney failure, unspecified; G89.4 Chronic pain syndrome; E87.6 Hypokalemia; E83.42 Hypomagnesemia; E86.0 Dehydration; K21.9 Gastro-esophageal reflux disease without esophagitis; N18.9 Chronic kidney disease, unspecified; F41.1 Generalized anxiety disorder; F32.A Depression, unspecified; Z93.2 Ileostomy status; Z85.038 Personal history of other malignant neoplasm of large intestine; Z90.49 Acquired absence of other specified parts of digestive tract; Z92.21 Personal history of antineoplastic chemotherapy; Z86.010 Personal history of colon polyps; Z20.822 Contact with and (suspected) exposure to COVID-19
CPT/HCPCS: G0378; J1650; J3475; Q9967

== ENCOUNTER 2023-07-17 17:46 | Emergency (ER) | payer BC ==
[~2023-07-17] VITALS: Ht 172.7 cm; Wt 87.4 kg
[~2023-07-17 17:46] MED LIST changes: +CARISOPRODOL350 MG PO; +FAMOTIDINE20 M1 PO; +FENOFIBRATE145 MG PO; +LOPRESSOR 550 MG/TAB PO; +MICRONIZED COLES1 GM PO; +XANAX1 MG PO
[2023-07-17 17:55] VITALS: BP 132/107
[2023-07-17 18:00] VITALS: BP 146/100
[2023-07-17] MEDS ORDERED: METOCLOPRAMIDE HCL 10 MG/2 ML SDV IV ONE (18:05)
[2023-07-17] MEDS ORDERED: DiphenhydrAMINE HCL 50 MG/ML SDV IV ONE (18:05)
[2023-07-17] MEDS ORDERED: SODIUM CHLORIDE 0.9% 1,000 ML IV ONE ×2 (18:05)
[2023-07-17 18:30] VITALS: BP 121/88
[2023-07-17 18:43] LABS: BASO% 0.1 % (0-3); EOS% 0.6 % (0-8); IMMATURE GRANULOCYTES 0.1 % (0.0-5.0); LYMPH% 17.3 % (15-41); MEAN CELL VOLUME 88.9 fL CALC (80.0-100.0); MEAN CORPUSCULAR HGB 29.2 pG CALC (26.0-32.0); MEAN CORPUSCULAR HGB CONC 32.9 g/dL CAL (32.0-36.0); MONO% 15.4 % (2-13); NEUT# 4.71 thou/uL (2.00-7.15); NEUT% 66.5 % (42-76); RED BLOOD COUNT 4.96 mill/uL (4.20-5.60); RED CELL DISTRI WIDTH 12.6 % (11.5-15.5)
[2023-07-17 18:45] LABS: HEMATOCRIT 44.1 % (37.0-47.0); HEMOGLOBIN 14.5 g/dl (12.0-16.0)
[2023-07-17 18:55] LABS: CREATININE 1.5 mg/dL (0.5-1.0)
[2023-07-17 18:57] LABS: ALBUMIN 5.2 g/dL (3.2-5.0); BILIRUBIN, TOTAL 1.8 mg/dL (0.02-1.3); TOTAL PROTEIN 9.6 g/dL (6.3-8.2)
[2023-07-17 19:00] VITALS: BP 111/84
[2023-07-17] MEDS ORDERED: POTASSIUM CHLORIDE 20 MEQ/TAB PO ONE (19:15)
[2023-07-17 19:32] LABS: URINE BLOOD DIPSTICK Moderate (NEGATIVE); URINE GLUCOSE - DIPSTICK Negative (NEGATIVE); URINE KETONE Trace mg/dL (NEGATIVE); URINE LEUK ESTERASE Trace (NEGATIVE); URINE NITRITE - DIPSTICK Negative (Negative); URINE PH 5.5 (4.5-8.0); URINE PROTEIN - DIPSTICK >=300 mg/dL (NEG-TRACE); URINE SPECIFIC GRAVITY 1.025; URINE UROBILINOGEN - DIPSTICK 0.2 E.U./dL (0.2)
[2023-07-17 19:33] LABS: URINE COLOR Yellow
[2023-07-17 19:40] LABS: URINE SQUAMOUS EPITHELIAL CELL FEW EPI/hpf (0-FEW)
[2023-07-17] MEDS ORDERED: PROCHLORPERAZINE EDISYLATE 10 MG/2 ML SDV IV ONE (20:30)
[2023-07-17] MEDS ORDERED: POTASSIUM CHLORIDE 20MEQ 100 ML IV ONE (20:50)
[2023-07-17] MEDS ORDERED: PAXLOVID PO (21:27)
[2023-07-17] MEDS ORDERED: ONDANSETRON4 MG PO (21:28)
[2023-07-17 21:37] VITALS: BP 111/84
== END 2023-07-17 21:47 | disposition home or self-care (01) | DRG 178 ==
LOC: ED 17:46
PROVIDERS: Family Medicine
DX: U07.1 COVID-19 (principal); R10.13 Epigastric pain; R05.9 Cough, unspecified; R51.9 Headache, unspecified; R19.7 Diarrhea, unspecified; R11.0 Nausea; R53.83 Other fatigue; E87.6 Hypokalemia; K86.1 Other chronic pancreatitis; Z85.038 Personal history of other malignant neoplasm of large intestine; Z92.3 Personal history of irradiation; Z92.21 Personal history of antineoplastic chemotherapy
CPT/HCPCS: Q9967

== ENCOUNTER 2024-06-15 22:28 | Emergency (ER) | payer BC ==
[~2024-06-15] VITALS: Ht 172.7 cm; Wt 83.0 kg
[~2024-06-15 22:28] MED LIST changes: +LASIX20 MG PO; +PAXLOVID PO
[2024-06-15] MEDS ORDERED: HYDROmorphone HCL 2 MG/AMP IV STA (22:57)
[2024-06-15] MEDS ORDERED: SODIUM CHLORIDE 0.9% 1,000 ML IV STA (22:57)
[2024-06-15] MEDS ORDERED: PROMETHAZINE HCL 25 MG/ML AMP IV ONE (23:00)
[2024-06-15 23:52] LABS: IMMATURE GRANULOCYTES 0.4 % (0.0-5.0); LYMPH% 1.9 % (15-41); MEAN CORPUSCULAR HGB 26.1 pG CALC (26.0-32.0); MEAN CORPUSCULAR HGB CONC 32.6 g/dL CAL (32.0-36.0); MONO% 2.4 % (2-13); NEUT# 21.43 thou/uL (2.00-7.15); NEUT% 95.3 % (42-76); RED BLOOD COUNT 4.45 mill/uL (4.20-5.60); RED CELL DISTRI WIDTH 13.1 % (11.5-15.5)
[2024-06-15 23:53] LABS: HEMATOCRIT 35.6 % (37.0-47.0); HEMOGLOBIN 11.6 g/dl (12.0-16.0)
[2024-06-16 00:02] LABS: ALBUMIN 4.8 g/dL (3.2-5.0); BILIRUBIN, TOTAL 0.9 mg/dL (0.02-1.3); CREATININE 1.7 mg/dL (0.5-1.0); MAGNESIUM 1.3 mg/dL (1.6-2.3); POTASSIUM 3.2 mmol/l (3.5-5.1); TOTAL PROTEIN 8.7 g/dL (6.3-8.2)
[2024-06-16 00:57] LABS: URINE BLOOD DIPSTICK Moderate (NEGATIVE); URINE COLOR Yellow; URINE GLUCOSE - DIPSTICK Negative (NEGATIVE); URINE KETONE 15 mg/dL (NEGATIVE); URINE LEUK ESTERASE Trace (NEGATIVE); URINE NITRITE - DIPSTICK Negative (Negative); URINE PH 5.5 (4.5-8.0); URINE PROTEIN - DIPSTICK 100 mg/dL (NEG-TRACE); URINE SPECIFIC GRAVITY 1.025; URINE UROBILINOGEN - DIPSTICK 0.2 E.U./dL (0.2)
[2024-06-16 01:01] LABS: URINE BACTERIA MODERATE hpf; URINE EPITHELIAL CELLS FEW EPI/hpf (0-FEW); URINE RBC >100 RBC/hpf (0-5)
[2024-06-16 01:02] LABS: URINE MUCUS MANY hpf (NONE-FEW)
[2024-06-16] MEDS ORDERED: POTASSIUM CHLORIDE 20 MEQ/PKT POWDER PO ONE (02:55)
[2024-06-16] MEDS ORDERED: D5NS W/KCL 20MEQ 1000ML 1,000 ML IV ONE (02:55)
[2024-06-16] MEDS ORDERED: MAGNESIUM SULFATE HEPTAHYDRATE 50 ML IV ONE (02:55)
[2024-06-16] MEDS ORDERED: NITROFURANTOIN 100 MG/CAP PO ONE (02:55)
[2024-06-16] MEDS ORDERED: MACROBID100 M1 PO (02:57)
[2024-06-16] MEDS ORDERED: HYDROcodone 5 MG/Acetaminophen 325 MG/COMBO PO ONE (05:15)
[2024-06-16] MEDS ORDERED: PROCHLORPERAZINE EDISYLATE 10 MG/2 ML SDV IV ONE (05:15)
[2024-06-16] MEDS ORDERED: HYDROcodone 5 MG/Acetaminophen 325 MG/COMBO PO SCH (05:15)
[2024-06-16] MEDS ORDERED: PROCHLORPERAZINE EDISYLATE 10 MG/2 ML SDV IV SCH (05:15)
[2024-06-17] MEDS ORDERED: FLEXERIL5 M1 PO (17:19)
== END 2024-06-16 05:50 | disposition home or self-care (01) | DRG 392 ==
LOC: ED 22:28
PROVIDERS: Family Medicine
DX: R10.31 Right lower quadrant pain (principal); N39.0 Urinary tract infection, site not specified; R11.2 Nausea with vomiting, unspecified; E87.6 Hypokalemia; E83.42 Hypomagnesemia
CPT/HCPCS: J0780; J1171; J2550; J3475; Q9967

== ENCOUNTER 2024-06-17 14:03 | Observation (INO) | payer BC ==
[~2024-06-17] VITALS: Ht 172.7 cm; Wt 83.1 kg
[2024-06-17] VITALS (33 sets, daily range): BP systolic 97–168; BP diastolic 42–96
[~2024-06-17 14:03] MED LIST changes: +MACROBID100 M1 PO
--- NOTE | 2024-06-17 14:25 | NUR ---
PATIENT TO ROOM 10 VIA WHEELCHAIR. UNDRESSED INTO A GOWN. TRIAGE COMPLETED AT BEDSIDE. AWAITING MD MOREIRA.
[2024-06-17] MEDS ORDERED: ONDANSETRON HCl 4 MG/2 ML SDV IV ONE (14:55)
[2024-06-17] MEDS ORDERED: SODIUM CHLORIDE 0.9% 1,000 ML IV ONE ×3 (14:55→19:50)
[2024-06-17] MEDS ORDERED: HYDROmorphone HCL 2 MG/AMP IV ONE ×3 (14:55→19:50)
[2024-06-17 15:31] LABS: BASO% 0.1 % (0-3); IMMATURE GRANULOCYTES 0.9 % (0.0-5.0); LYMPH% 1.9 % (15-41); MEAN CELL VOLUME 80.6 fL CALC (80.0-100.0); MEAN CORPUSCULAR HGB 26.1 pG CALC (26.0-32.0); MEAN CORPUSCULAR HGB CONC 32.4 g/dL CAL (32.0-36.0); MONO% 0.9 % (2-13); NEUT# 13.75 thou/uL (2.00-7.15); NEUT% 96.2 % (42-76); RED BLOOD COUNT 4.22 mill/uL (4.20-5.60); RED CELL DISTRI WIDTH 13.6 % (11.5-15.5)
[2024-06-17 15:42] LABS: ALBUMIN 4.3 g/dL (3.2-5.0); CREATININE 1.7 mg/dL (0.5-1.0); POTASSIUM 3.2 mmol/l (3.5-5.1); TOTAL PROTEIN 7.8 g/dL (6.3-8.2)
[2024-06-17 15:44] LABS: BILIRUBIN, TOTAL 1.8 mg/dL (0.02-1.3)
[2024-06-17] MEDS ORDERED: FLEXERIL5 M1 PO (17:19)
[2024-06-17 18:32] LABS: URINE BILIRUBIN - DIPSTICK Negative (NEGATIVE); URINE BLOOD DIPSTICK Small (NEGATIVE); URINE GLUCOSE - DIPSTICK Negative (NEGATIVE); URINE KETONE Negative (NEGATIVE); URINE NITRITE - DIPSTICK Negative (Negative); URINE PROTEIN - DIPSTICK 100 mg/dL (NEG-TRACE); URINE SPECIFIC GRAVITY 1.015; URINE UROBILINOGEN - DIPSTICK 0.2 E.U./dL (0.2)
[2024-06-17 18:33] LABS: URINE COLOR Dark yellow; URINE LEUK ESTERASE Moderate (NEGATIVE)
[2024-06-17 18:43] LABS: URINE BACTERIA MODERATE hpf; URINE SQUAMOUS EPITHELIAL CELL FEW EPI/hpf (0-FEW); URINE WBC 20-50 WBC/hpf (0-5)
--- NOTE | 2024-06-17 19:15 | NUR ---
PT IN CT AT THIS TIME, REPORT RECEIVED FROM ANATOLIY GARCIA.
--- NOTE | 2024-06-17 19:35 | NUR ---
PT ASSESSED AT THIS TIME, PT C/O TEMPERATURE, NOTED AT 98.5, PT C/O SPASM TO NECK, MD NOTIFIED AT THIS TIME, NAD NOTED, VSS, AWAITING MD FOR DISCUSSION OF ALL COMPLETED RESULTS.
[2024-06-17] MEDS ORDERED: CYCLOBENZAPRINE HCL 5 MG TAB PO ONE (19:50)
[2024-06-17] MEDS ORDERED: DOXYCYCLINE HYCLATE 100 MG in SODIUM CHLORIDE 0.9% 100 ML IV ONE (19:50)
--- NOTE | 2024-06-17 20:05 | NUR ---
PT MEDICATED PER ORDERS, UPDATED ON CONTINUOUS PLAN OF CARE, PT VOICES UNDERSTANDING, VOICES NO FURTHER QUESTIONS OR CONCERNS, WILL CONTINUE TO MONITOR.
[2024-06-17] MEDS ORDERED: PROMETHAZINE HCL 25 MG/ML AMP IV ONE (20:25)
--- NOTE | 2024-06-17 20:38 | NUR ---
PT MEDICATED PER ORDERS, UPDATED ON PLAN OF CARE, PT TALKING WITH FAMILY, NAD NOTED, AWAITING FURTHER ORDERS.
[2024-06-17] MEDS ORDERED: HEPARIN SODIUM FLUSH (PORCINE) 100 UNITS/ML 3 ML SYR IV ONE (21:05)
--- NOTE | 2024-06-17 21:34 | NUR ---
SOFTWARE ENGINEERING ASSOCIATE MANAGER ATTEMPTED TO D/C PT AT THIS TIME, PT BEGIN HYPERVENTALATING, THROWING SELF AROUND STRETCHER, VOICES EXTREME PAIN TO NECK DUE TO SPASM AT THIS TIME, MD NOTIFIED OF PT, MD VOICES WILL ADMIT AT THIS TIME, PT NOTIFIED AT THIS TIME OF ADMISSION, PT NOTED TO HAVE UNLABORED RESPIRATIONS AND VOICE APPRECIATION OF CARE, FAMILY PRESENT AT BEDSIDE, PT UNABLE TO CLARIFY MED REC DUE TO NO LIST AT THIS TIME, STATES MEDS IN COMPUTER ARE CORRECT.
[2024-06-17] MEDS ORDERED: MAGNESIUM HYDROXIDE 30 ML UDC PO PRN (21:40)
[2024-06-17] MEDS ORDERED: ACETAMINOPHEN 325 MG/TAB PO PRN (21:40)
[2024-06-17] MEDS ORDERED: Zaleplon 5 MG/CAP PO PRN (21:40)
[2024-06-17] MEDS ORDERED: SODIUM CHLORIDE 0.9% 1,000 ML IV SCH (21:45)
[2024-06-17] MEDS ORDERED: POTASSIUM CHLORIDE 20MEQ 100 ML IV ONE (21:55)
[2024-06-17] MEDS ORDERED: HYDROmorphone HCL 2 MG/AMP IV PRN (22:00)
[2024-06-17] MEDS ORDERED: PROMETHAZINE HCL 25 MG/ML AMP IV PRN (22:00)
--- NOTE | 2024-06-17 22:00 | NUR ---
PT UPDATED ON PLAN OF CARE, AWAITING ADMISSION ORDERS AND NURSING SALES COMMUNICATIONS MANAGER FOR MEDICATION, PT VOICES UNDERSTANDING WITH NO FURTHER COMPLAINTS AT THIS TIME.
--- NOTE | 2024-06-17 22:40 | NUR ---
PT MEDICATED PER ORDERS, [employer] STILL AWAITING PHARMACY TO APPROVE ADMISSION ORDERS, PT AWARE OF PLAN OF CARE, WILL CONTINUE TO MONITOR.
--- NOTE | 2024-06-17 23:28 | NUR ---
REPORT CALLED TO RAMESH IN ICU.
--- NOTE | 2024-06-18 | NUR ---
PT TRANPORTED TO ICU VIA STRETCHER, NAD NOTED, PT IVF/MEDS RUNNING, NURSE X2 AT BEDSIDE.
[2024-06-18 00:01] VITALS: BP 128/76
--- NOTE | 2024-06-18 00:01 | NUR ---
44 yr old female admitted [id number] per stretcher from er as medsurg overflow. transferred self to bed. history obtained per pt & er record. oriented to room. fall precautions initiated.
--- NOTE | 2024-06-18 04:00 | NUR ---
eyes closed. no distress. ivf infusing well.
[2024-06-18 06:03] LABS: BASO% 0.1 % (0-3); EOS% 0.6 % (0-8); HEMOGLOBIN 8.9 g/dl (12.0-16.0); IMMATURE GRANULOCYTES 0.3 % (0.0-5.0); LYMPH% 7.7 % (15-41); MEAN CORPUSCULAR HGB 26.6 pG CALC (26.0-32.0); MONO% 6.2 % (2-13); NEUT# 7.36 thou/uL (2.00-7.15); NEUT% 85.1 % (42-76); RED BLOOD COUNT 3.35 mill/uL (4.20-5.60); RED CELL DISTRI WIDTH 13.9 % (11.5-15.5)
[2024-06-18 06:04] LABS: HEMATOCRIT 27.8 % (37.0-47.0)
[2024-06-18 06:12] LABS: ALBUMIN 3.1 g/dL (3.2-5.0); CREATININE 1.3 mg/dL (0.5-1.0); POTASSIUM 3.5 mmol/l (3.5-5.1)
[2024-06-18] MEDS ORDERED: DOXYCYCLINE HYCLATE 100 MG in SODIUM CHLORIDE 0.9% 100 ML IV SCH (08:00)
--- NOTE | 2024-06-18 08:00 | NUR ---
REPORT RECEIVED FROM NIGHT NURSE. PATIENT AXO X3, PATIENT IS SHAKING AND COMPLAINING OF BEING IN PAIN. S1S2 NOTED, HR REGULAR. LUNG SOUNDS CLEAR, NO COUGH OR SOB NOTED. ABDOMEN SOFT, NON DISTENDED, NON TENDER, WITH ACTIVE BOWEL SUONDS, ILEOSTOMY NOTED. PULSES STRONG IN ALL EXTREMITIES. SKIN WDI. CALL LIGHT IN REACH.
[2024-06-18] MEDS ORDERED: CYCLOBENZAPRINE HCL 5 MG TAB PO PRN (08:11)
[2024-06-18] MEDS ORDERED: diazePAM 10 MG/2 ML VIAL IV SCH (08:30)
[2024-06-18] MEDS ORDERED: FAMOTIDINE 20 MG/TAB PO SCH (09:00)
[2024-06-18] MEDS ORDERED: METOPROLOL TARTRATE 50 MG/TAB PO SCH (09:00)
[2024-06-18 09:12] VITALS: BP 117/59
[2024-06-18] MEDS ORDERED: OLANZAPINE5 MG PO (10:48)
[2024-06-18] MEDS ORDERED: AMLODIPINE BESYL5 MG PO (10:48)
[2024-06-18] MEDS ORDERED: TRANSDERM-1 MG/3 DAY TOP (10:49)
[2024-06-18] MEDS ORDERED: OXYCODONE5 M1 PO (10:50)
[2024-06-18] MEDS ORDERED: CARAFATE1 GM PO (10:50)
[2024-06-18] MEDS ORDERED: CLONAZEPAM0.5 M1 PO (10:51)
--- NOTE | 2024-06-18 11:00 | NUR ---
PT ARRIVED TO THE UNIT VIA WC, PT AMBULATED FROM THE WC TO THE BED WITH A STEADY GAIT, PT TOLERATED WELL, CALL SAMUEL WITHIN REACH
[2024-06-18 11:36] VITALS: BP 117/71
--- NOTE | 2024-06-18 12:00 | NUR ---
PT SITTING UP IN THE BED TALKING TO VISITOR AT BEDSIDE, PT DENIES ANY NEEDS AT TIME, PT REMINDED TO CALL FOR ASSISTANCE, CALL SAMUEL WITHIN REACH
[2024-06-18] MEDS ORDERED: oxyCODONE HCL 5 MG/TAB PO SCH (13:00)
[2024-06-18] MEDS ORDERED: OLANZapine 5 MG/TAB PO SCH (14:00)
[2024-06-18 14:46] VITALS: BP 100/62
--- NOTE | 2024-06-18 15:25 | NUR ---
PT LAYING IN BED RESTING WITH EYES CLOSED, AROUSES EASILY TO VERBAL STIMULI, CALL SAMUEL WITHIN REACH
[2024-06-18 18:30] VITALS: BP 105/59
[2024-06-18 18:54] VITALS: BP 105/59
--- NOTE | 2024-06-18 20:13 | NUR ---
PATIENT SITTING UP IN BED AT THIS TIME WITH FAMILY AT BEDSIDE. AWAKLE ALERT AND ORIENTEDX3. PATIENT EATING FOOD THAT FAMILY BROUGHT IN FOR HER. PATIENT WITH IVF NS PATENT AND INFUSING VIA RIGHT CHEST PORT AT 80CC/HR. SITE APPEARS HEALTHY AT THIS TIME. VIBRAMYCIN HUNG ORDERED. ILEOSTOMY APPLIANCE INTACT TO LEFT ABD WITH WATERY FLUID DRAINING. PATIENT INSTRUCTED THAT WE DO NEED URINE SPEC WHEN SHE IS ABLE TO PROVIDE. VERBALIZES UNDERSTANDING. LUNGS ARE CLEAR. ABD IS SOFT WITH ACTIVE BS. TRACE BLE SWELLING NOTED WITH PALPABLE PULSES. SAFETY PRECAUTIONS REINFORCED. CALL LIGHT IN REACH. WILL CONT TO MONITOR.
--- NOTE | 2024-06-18 20:58 | NUR ---
PATIENT SITTING UP IN BED WITH HER DAUGHTER DOING HER HAIR FOR HER. MEDICATED WITH SCHEDULED MEDS-ROXICODONE 5MG PO, KLONOPIN AND PEPCID. PATIENT STATES THAT HE PAIN LEVEL IS 7/10 ON PAIN SCALE BUT SHE THINKS THAT IT IS GOING TO GET WORSE EVEN THOUGH SHE IS BEING MEDICATED AT THIS TIME FOR PAIN. STATES THAT EVER SINCE SHE STARTED TAKING THE GETTEX FOR HER SBS HER SYPMTOMS HAVE BEEN INCREASING. STATES THAT HER ORDERING DOCTOR, HER GI DOCTOR IS AWARE AND THAT SHE NEED TO CONT TO TAKE THIS MED. PATIENT PROVIDED WITH URINE SPEC CONTAINER AND REMINDED THAT WE DO NEED A URINE SPEC-VERBALIZES UNDERSTANDING. CALL LIGHT IN REACH. WILL CONT TO MONITOR.
[2024-06-18] MEDS ORDERED: clonazePAM 0.5 MG/TAB PO SCH (21:00)
--- NOTE | 2024-06-18 22:01 | NUR ---
PATIENT COMING OUT OF THE BR-URINE SPEC OBTAINED CLOUDY ALIREZA URINE. PATIENT BACK TO THE BED C/O / GENERALIZED PAIN AND MUSCLE ACHES. STATES NO RELEIF OBTAINED FROM ROXICODONE. MEDICATED WITH DILAUDID 1MG IVP AND WITH FLEXERIL 5MG FOR MUSCLE SPASMS. PATIENT ALSO ASKING FOR PHENERGAN BUT TOO EARLY AT THIS TIME. DAUGHTER REMAINS AT BEDSIDE. CALL LIGHT IN REACH. WILL CONT TO MONITOR.
--- NOTE | 2024-06-18 23:49 | NUR ---
PATIENT RESTING IN BED AT THIS TIME-C/O NAUSEA AND MEDICATED WITH PHENERGAN 12.5MG IVP ORDERED. IVF NS PATENT AND INFUSING VIA RIGHT UPPER CHEST PORT. STATES THAT HER PAIN IS CURRENTLY AT 5/10 ON PAIN SCALE. SAFETY PRECAUTIONS REINFORCED. CALL LIGHT IN REACH. WILL CONT TO MONITOR.
[2024-06-19 04:00] VITALS: BP 107/69
--- NOTE | 2024-06-19 04:28 | NUR ---
PATIENT RESTING IN BED-LAB WORK DRAWN FROM RIGHT UPPER CHEST PORT WITH GOOD BLOOD RETURN. FLUSHED PER PROTOCOL. IVF NS PATENT AND INFUSING AT 80CC/HR. PATIENT UP TO THE BR TO VOID. PATIENT CONT TO DO OWN ILEOSTOMY CARE. PATIENT MEDICATED FOR PAIN WITH DILAUDID 1MG IVP ORDERED. CALL LIGHT IN REACH. WILL CONT TO MONITOR.
[2024-06-19 06:08] LABS: HEMATOCRIT 24.8 % (37.0-47.0); HEMOGLOBIN 8.3 g/dl (12.0-16.0); MEAN CELL VOLUME 81.8 fL CALC (80.0-100.0); MEAN CORPUSCULAR HGB 27.4 pG CALC (26.0-32.0); MEAN CORPUSCULAR HGB CONC 33.5 g/dL CAL (32.0-36.0); RED BLOOD COUNT 3.03 mill/uL (4.20-5.60); RED CELL DISTRI WIDTH 13.8 % (11.5-15.5)
[2024-06-19 06:14] LABS: ALBUMIN 2.8 g/dL (3.2-5.0); BILIRUBIN, TOTAL 0.9 mg/dL (0.02-1.3); CREATININE 1.2 mg/dL (0.5-1.0); MAGNESIUM 1.8 mg/dL (1.6-2.3); TOTAL PROTEIN 5.6 g/dL (6.3-8.2)
--- NOTE | 2024-06-19 07:20 | NUR ---
PT LAYING IN BED WATCHING TV, PT IS A&O X 3, PUPILS PERRL, NORMAL S1 S2 HEART SOUNDS, RESP. EVEN AND UNLABORED, LUNG SOUNDS ARE CLEAR, AB DISTENDED AND SOFT WITH ACTIVE BOWEL SOUNDS, R CHEST WALL PORT WITH FLUIDS INFUSING AT PRESCRIBED RATE, SAFETY MEASURES REINFORCED, CALL SAMUEL WITHIN REACH
[2024-06-19 08:42] VITALS: BP 137/78
[2024-06-19] MEDS ORDERED: amLODIPine BESYLATE 5 MG/TAB PO SCH (09:00)
[2024-06-19] MEDS ORDERED: OXYCODONE5 M1 PO (10:18)
[2024-06-19] MEDS ORDERED: SOMA250 MG PO (10:19)
--- NOTE | 2024-06-19 12:00 | NUR ---
PT SITTING UP IN THE BED WAITING ON A RIDE, PT HAS BEEN GIVEN DISCHARGE INSRUCTIONS, NO S/S OF DISTRESS, CALL SAMUEL WITHIN REACH
--- NOTE | 2024-06-19 13:10 | NUR ---
Discharge instructions given. Patient verbalizes understanding of same. Discharged in stable condition via Wheelchair to Home with friend. All belongings sent with pt.
== END 2024-06-19 13:09 | disposition home or self-care (01) | DRG 92 ==
LOC: ED 14:03 → ED-I 21:20 → ED 21:33 → ICU 21:34 → MS2 06-18 11:13
PROVIDERS: Family Medicine; Nurse Practitioner Family; ADMIT Internal Medicine; ATTEND Internal Medicine
DX: R25.2 Cramp and spasm (principal); K91.2 Postsurgical malabsorption, not elsewhere classified; G89.29 Other chronic pain; I12.9 Hypertensive chronic kidney disease with stage 1 through stage 4 chronic kidney disease, or unspecified chronic kidney disease; N18.9 Chronic kidney disease, unspecified; D13.91 Familial adenomatous polyposis; F32.A Depression, unspecified; F41.1 Generalized anxiety disorder; K21.9 Gastro-esophageal reflux disease without esophagitis; Y83.6 Removal of other organ (partial) (total) as the cause of abnormal reaction of the patient, or of later complication, without mention of misadventure at the time of the procedure; Z93.2 Ileostomy status; Z92.21 Personal history of antineoplastic chemotherapy; Z92.3 Personal history of irradiation; Z85.038 Personal history of other malignant neoplasm of large intestine; Z20.822 Contact with and (suspected) exposure to COVID-19
CPT/HCPCS: G0378; J1171; J2405; J2550; J3360; J3480

== ENCOUNTER 2024-07-25 00:11 | Emergency (ER) | payer BC ==
[2024-07-25] VITALS (13 sets, daily range): BP systolic 113–169; BP diastolic 59–109
[~2024-07-25] VITALS: Ht 172.7 cm; Wt 81.0 kg
[~2024-07-25 00:11] MED LIST changes: +AMLODIPINE BESYL5 MG PO; +CARAFATE1 GM PO; +CLONAZEPAM0.5 M1 PO; +FLEXERIL5 M1 PO; +OLANZAPINE5 MG PO; +OXYCODONE5 M1 PO; +SOMA250 MG PO
[2024-07-25] MEDS ORDERED: PROMETHAZINE HCL 25 MG/ML AMP IM ONE (00:30)
[2024-07-25] MEDS ORDERED: SODIUM CHLORIDE 0.9% 1,000 ML IV ONE ×2 (00:30→01:20)
[2024-07-25] MEDS ORDERED: HYDROmorphone HCL 2 MG/AMP IV ONE (00:30)
[2024-07-25] MEDS ORDERED: FAMOTIDINE 10MG/ML 2ML SDV IV ONE (00:35)
[2024-07-25 00:50] LABS: BASO% 0.1 % (0-3); EOS% 1.2 % (0-8); HEMATOCRIT 29.8 % (37.0-47.0); HEMOGLOBIN 9.3 g/dl (12.0-16.0); IMMATURE GRANULOCYTES 0.1 % (0.0-5.0); LYMPH% 4.3 % (15-41); MEAN CELL VOLUME 83.2 fL CALC (80.0-100.0); MEAN CORPUSCULAR HGB CONC 31.2 g/dL CAL (32.0-36.0); MONO% 4.7 % (2-13); NEUT# 13.09 thou/uL (2.00-7.15); NEUT% 89.6 % (42-76); RED BLOOD COUNT 3.58 mill/uL (4.20-5.60); RED CELL DISTRI WIDTH 16.4 % (11.5-15.5)
[2024-07-25 01:05] LABS: BILIRUBIN, TOTAL 0.6 mg/dL (0.02-1.3); POTASSIUM 3.6 mmol/l (3.5-5.1)
[2024-07-25 01:10] LABS: ALBUMIN 4.3 g/dL (3.2-5.0); CREATININE 2.2 mg/dL (0.5-1.0); TOTAL PROTEIN 7.8 g/dL (6.3-8.2)
[2024-07-25 01:15] LABS: PROTHROMBIN TIME 10.8 SECONDS (9.0-12.5)
[2024-07-25] MEDS ORDERED: MAGNESIUM SULFATE HEPTAHYDRATE 2 GM in SODIUM CHLORIDE 0.9% 50 ML IV ONE ×2 (01:15→01:45)
[2024-07-25] MEDS ORDERED: MAGNESIUM SULFATE 2 GM/50 ML BAG IV ONE (01:50)
[2024-07-25 04:03] LABS: URINE BILIRUBIN - DIPSTICK Negative (NEGATIVE); URINE BLOOD DIPSTICK Moderate (NEGATIVE); URINE GLUCOSE - DIPSTICK Negative (NEGATIVE); URINE KETONE Negative (NEGATIVE); URINE PH 5.5 (4.5-8.0); URINE PROTEIN - DIPSTICK 100 mg/dL (NEG-TRACE); URINE SPECIFIC GRAVITY 1.015; URINE UROBILINOGEN - DIPSTICK 0.2 E.U./dL (0.2)
[2024-07-25 04:07] LABS: URINE COLOR Yellow; URINE LEUK ESTERASE Small (NEGATIVE)
[2024-07-25 04:12] LABS: URINE NITRITE - DIPSTICK Negative (Negative)
[2024-07-25 04:15] LABS: URINE BACTERIA MANY hpf; URINE EPITHELIAL CELLS MANY EPI/hpf (0-FEW); URINE YEAST MODERATE hpf
[2024-07-25] MEDS ORDERED: DOXYCYCLINE HYCLATE 100 MG in SODIUM CHLORIDE 0.9% 100 ML IV ONE (04:30)
== END 2024-07-25 06:29 | DRG 392 ==
LOC: ED 00:11
PROVIDERS: Internal Medicine
DX: R11.2 Nausea with vomiting, unspecified (principal); N39.0 Urinary tract infection, site not specified; B49 Unspecified mycosis; R10.9 Unspecified abdominal pain; E83.42 Hypomagnesemia; N28.9 Disorder of kidney and ureter, unspecified; R74.8 Abnormal levels of other serum enzymes
CPT/HCPCS: J1171; J2550; J3475; Q9967